=== PATIENT | female | born 1985 | race Caucasian/White ===

== ENCOUNTER 2022-12-24 18:24 | Emergency (ER) | payer OTHER, SELFPAY ==
[2022-12-24] VITALS (19 sets, daily range): BP systolic 131–160; BP diastolic 76–97; PULSE 50–80; RESP 11–24; TEMP 36.8; O2SAT 98–100; BMI 47.3
--- NOTE | 2022-12-24 18:44 | ECG_ITS ---
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
--- NOTE | 2022-12-24 18:50 | ED_ITS ---
HPI - Chest Pain General Chief Complaint: Chest Pain Stated Complaint: CHEST TIGHTNESS Time Seen by Provider: 12/24/22 18:44 Source: patient Mode of arrival: walk-in History of Present Illness HPI narrative: patient is a 37-year-old female to history of coronary artery disease and stent ?1 was placed two years ago in [place] as well as high blood pressure and high cholesterol, she presents to the Emergency Room for the evaluation of left anterior chest pain radiating into the axilla. She believes that she woke up with it this morning but states it may have been present last night and going to bed. She denies any injury or trauma. She states pain is worse with movement of her arm, deep breathing and movement of the chest wall. She has not noted any rashes or color change. She is not concerned with . She smokes 7-8 cigarettes daily. She is on Effient for anticoagulation. Risk Factors Coronary artery disease risk factors: smoking history, hyperlipidemia and h ypertension Related Data Previous Rx's Medication Instructions Recorded methocarbamol 750 mg tablet 750 mg PO TID PRN pain #20 tabs 12/24/22 methylprednisolone 4 mg tablets in See Rx Instructions .Route 12/24/22 a dose pack (Medrol (Aj)) .COMPLEX #21 ea Allergies Allergy/AdvReac Type Severity Reaction Status Date / Time No Known Drug Allergies Allergy Verified 12/24/22 18:29 Review of Systems ROS Constitutional Denies: fever or chills Ears, nose, mouth, and throat Denies: throat pain Cardiovascular Reports: chest pain; Denies: palpitations Respiratory Denies: shortness of breath or cough Gastrointestinal Denies: abdominal pain, nausea or vomiting Musculoskeletal Denies: back pain or neck pain Integumentary/Breast Denies: rash Neurological Denies: headache Hematologic/Lymphatic Reports: easy bruising PFSH PFSH Social History Smoking status: Current every day smoker Exam Narrative Exam Narrative: Gen.: Awake, alert, in no distress Head: Normocephalic, atraumatic ENT: Moist mucous membranes Respiratory: No respiratory distress, lungs clear bilaterally; tenderness in the left anterior chest wall at the axilla with no rashes or bruising noted Cardio: Regular rate and rhythm Gastrointestinal: Abdomen is soft, nondistended and nontender to palpation Extremities: Moves extremities equally, no pedal edema Psych: Normal mood and affect Neuro: No focal neuro deficit Skin: Warm, dry, intact Constitutional Vital Signs, click to edit/add: Last Vital Signs Temp 98.3 F 12/24/22 18:29 Pulse 60 12/24/22 21:00 Resp 20 12/24/22 21:00 BP 131/76 12/24/22 20:32 Pulse Ox 98 12/24/22 21:00 O2 Del Method Room Air 12/24/22 18:57 Course Vital Signs Vital signs: Vital Signs Temperature 98.3 F 12/24/22 18:29 Pulse Rate 70 12/24/22 18:29 Respiratory Rate 18 12/24/22 18:29 Blood Pressure 157/97 H 12/24/22 18:29 Pulse Oximetry 100 12/24/22 18:29 Oxygen Delivery Method Room Air 12/24/22 18:29 Temperature 98.3 F 12/24/22 18:29 Pulse Rate 60 12/24/22 21:00 Respiratory Rate 20 12/24/22 21:00 Blood Pressure 131/76 12/24/22 20:32 Pulse Oximetry 98 12/24/22 21:00 Oxygen Delivery Method Room Air 12/24/22 18:57 MDM - Chest Pain MDM Narrative Medical decision making narrative: labs including two troponins and d-dimer are within normal limits, lipase is mildly elevated but not high enough to be considered acute pancreatitis. Patient with no abdominal pain or vomiting. No evidence of transaminitis. Chest x-ray shows no evidence of acute cardiopulmonary changes. Exam is consistent with chest wall pain versus pleurisy. Patient started on a Medrol Dosepak and muscle relaxants as she is anticoagulated at home, we will avoid NSAIDs. Follow-up with PCP and return to the Emergency Room if symptoms change or worsen. Heart score is a two for the patient's risk factors of obesity, hypertension, hyperlipidemia and cigarette smoking. Medical Records Data Attestation: I reviewed the patient's medical records. Lab Data Attestation: I reviewed the patient's lab results. Labs: Lab Results 12/24/22 12/24/22 Range/Units 18:47 21:07 WBC 5.2 (4.0-11.0) 10^3/uL RBC 4.39 (4.20-5.40) 10^6/uL Hgb 13.3 (12.0-16.0) g/dL Hct 39.5 (36.0-48.0) % MCV 90.0 (81.0-99.0) fL MCH 30.3 (26.7-34.0) pg MCHC 33.7 (29.9-35.2) g/dL RDW 13.0 (11.0-15.0) % Plt Count 252 (150-450) 10^3/uL MPV 8.9 L (9.5-13.5) fL Neut % (Auto) 57.7 (43.0-75.0) % Lymph % (Auto) 33.2 (20.5-60.0) % Delta % (Auto) 6.4 (1.7-12.0) % Eos % (Auto) 2.1 (0.9-7.0) % Baso % (Auto) 0.4 (0.2-2.0) % Neut # (Auto) 3.0 (1.4-6.5) 10^3/uL Lymph # (Auto) 1.7 (1.2-3.8) 10^3/uL Delta # (Auto) 0.3 (0.3-0.8) 10^3/uL Eos # (Auto) 0.1 (0.0-0.7) 10^3/uL Baso # (Auto) 0.0 (0.0-0.1) 10^3/uL Abs Immat Gran (auto) 0.01 (0.00-0.03) 10^3/uL Imm/Tot Granulo (auto) 0.2 (0.0-0.5) % PT 10.6 (9.0-11.6) sec INR 1.00 D-Dimer 0.28 (<=0.59) mg/L FEU Sodium 140 (136-145) mmol/L Potassium 3.8 (3.5-5.1) mmol/L Chloride 105 (98-107) mmol/L Carbon Dioxide 27.7 (21.0-32.0) mmol/L Anion Gap 11.1 BUN 8.0 (7.0-18.0) mg/dL Creatinine 0.74 (0.55-1.02) mg/dL Est GFR ( Amer) >60 (>=60) Est GFR (Non-Af Amer) >60 (>=60) BUN/Creatinine Ratio 10.8 Glucose 106 (74-106) mg/dL Calcium 8.6 (8.5-10.1) mg/dL Total Bilirubin 0.4 (0.2-1.0) mg/dL AST 8 L (15-37) U/L ALT 18 (14-59) U/L Alkaline Phosphatase 87 (46-116) U/L Troponin I High Sens 6.1 7.6 (4.0-51.3) pg/mL NT-Pro-B Natriuret Pep 422.0 (<=450.0) pg/mL Total Protein 6.8 (6.4-8.2) g/dL Albumin 4.0 (3.4-5.0) g/dL Globulin 2.8 g/dL Albumin/Globulin Ratio 1.4 Lipase 656.0 H (73.0-393.0) U/L Serum HCG, Qual Negative (NEGATIVE) Imaging Data Chest x-ray: Attestation: I have reviewed the pertinent imaging results. Radiologist's impression: Procedure: XR chest 1V EXAMINATION: XR chest 1V HISTORY: Chest pain COMPARISON: None. TECHNIQUE: Portable chest FINDINGS: The lung parenchyma is free of consolidation or infiltrate. No pneumothorax or pleural effusion. The cardiac, mediastinal and hilar contours are normal. The visualized osseous structures exhibit no gross abnormality. IMPRESSION: No acute cardiopulmonary abnormality. Electronically authenticated by: NGOC LEZAMA Date: 12/24/2022 20:16 ECG Data Attestation: I personally reviewed and interpreted this ECG as follows: (normal sinus rhythm at a rate of fifty-seven, no acute ST elevation or ectopy. EKG reviewed by attending physician.) ECG interpretation date: 12/24/22 ECG interpretation time: 18:53 Heart Score History: Slightly/Non-Suspicious ECG: Normal Age: <45 years Risk Factors: >3 Risk Factors/ HX of CAD:2 Troponin: <Normal Limit Total Heart Score Recommendations & Risks:: 2 Discharge Plan Discharge Chief Complaint: Chest Pain Clinical Impression: Chest pain Patient Disposition: Home, Self-Care Time of Disposition Decision: 21:40 Condition: Good Prescriptions / Home Meds: New methocarbamol 750 mg tablet 750 mg PO TID PRN (Reason: pain) Qty: 20 0RF methylprednisolone [Medrol (Aj)] 4 mg tablets,dose pack See Rx Instructions .ROUTE .COMPLEX Qty: 21 0RF Rx Instructions: Taper as directed Instructions: Chest Pain (ED), Chest Wall Pain (ED) Stand Alone Forms: Portal Instructions Referrals: RAFY YANES [Primary Care Provider] - 1 week
[2022-12-24] MEDS: ASPIRIN 81 MG TAB.CHEW 162 MG PO (19:08)
[2022-12-24] MEDS: ORPHENADRINE 60 MG/ 2 ML VIAL IV (19:09)
[2022-12-24] MEDS: KETOROLAC TROMETHAMINE 30 MG/ML VIAL IVP (19:09)
[2022-12-24 19:11] LABS: Basophils Percent Auto 0.4 % (0.2-2.0); Eosinophils Absolute Auto 0.1 10^3/uL (0.0-0.7); Eosinophils Percent Auto 2.1 % (0.9-7.0); Hematocrit 39.5 % (36.0-48.0); Hemoglobin 13.3 g/dL (12.0-16.0); Immature Granulocytes Abs Auto 0.01 10^3/uL (0.00-0.03); Immature Granulocytes Pct Auto 0.2 % (0.0-0.5); Lymphocytes Absolute Auto 1.7 10^3/uL (1.2-3.8); Lymphocytes Percent Auto 33.2 % (20.5-60.0); Mean Corpuscular HGB Conc 33.7 g/dL (29.9-35.2); Mean Corpuscular Hemoglobin 30.3 pg (26.7-34.0); Mean Platelet Volume 8.9 fL (9.5-13.5); Monocytes Absolute Auto 0.3 10^3/uL (0.3-0.8); Monocytes Percent Auto 6.4 % (1.7-12.0); Neutrophils Percent Auto 57.7 % (43.0-75.0); Platelet Count 252 10^3/uL (150-450); Red Blood Count 4.39 10^6/uL (4.20-5.40); White Blood Count 5.2 10^3/uL (4.0-11.0)
[2022-12-24 19:23] LABS: HCG Qualitative NEGATIVE (NEGATIVE)
[2022-12-24 19:27] LABS: D Dimer 0.28 mg/L FEU (<=0.59); Prothrombin Time 10.6 sec (9.0-11.6)
--- NOTE | 2022-12-24 19:30 | XR_ITS ---
The [address] [address] Patient Name: JOVAN RITTER MRN: [id number] date: 1985 Sex: F Assigned Patient Location: ER Current Patient Location: ED.MAIN Accession/Order Number: [id number] Exam Date: 12/24/2022 19:45 Report Date: 12/24/2022 20:16 At the request of: EMMETT BRAVO Procedure: XR chest 1V EXAMINATION: XR chest 1V HISTORY: Chest pain COMPARISON: None. TECHNIQUE: Portable chest FINDINGS: The lung parenchyma is free of consolidation or infiltrate. No pneumothorax or pleural effusion. The cardiac, mediastinal and hilar contours are normal. The visualized osseous structures exhibit no gross abnormality. XR/XR chest 1V IMPRESSION: No acute cardiopulmonary abnormality. Electronically authenticated by: NGOC LEZAMA Date: 12/24/2022 20:16
[2022-12-24 19:33] LABS: Alanine Aminotransferase 18 U/L (14-59); Albumin Globulin Ratio 1.4; Alkaline Phosphatase 87 U/L (46-116); Anion Gap 11.1; Aspartate Amino Transferase 8 U/L (15-37); BUN Creatinine Ratio 10.8; Bilirubin Total 0.4 mg/dL (0.2-1.0); Calcium 8.6 mg/dL (8.5-10.1); Carbon Dioxide 27.7 mmol/L (21.0-32.0); Chloride 105 mmol/L (98-107); Estimated GFR (African America >60 (>=60); Estimated GFR (Non-African Ame >60 (>=60); Globulin 2.8 g/dL; Glucose 106 mg/dL (74-106); Potassium 3.8 mmol/L (3.5-5.1); Sodium 140 mmol/L (136-145); Total Protein 6.8 g/dL (6.4-8.2); Troponin I High Sensitivity 6.1 pg/mL (4.0-51.3)
[2022-12-24 21:29] LABS: Troponin I High Sensitivity 7.6 pg/mL (4.0-51.3)
== END 2022-12-24 21:50 | disposition home or self-care (01) ==
PROVIDERS: Physician Assistant; Emergency Provider Emergency Medicine; PCP Nurse Practitioner Family
DX: R07.9 Chest pain, unspecified (principal); I25.10 Atherosclerotic heart disease of native coronary artery without angina pectoris; Z95.5 Presence of coronary angioplasty implant and graft; I10 Essential (primary) hypertension; E78.00 Pure hypercholesterolemia, unspecified; F17.210 Nicotine dependence, cigarettes, uncomplicated; Z79.01 Long term (current) use of anticoagulants; E66.9 Obesity, unspecified; Z68.42 Body mass index [BMI] 45.0-49.9, adult
CPT/HCPCS: 36415; 71045; 80053; 83690; 83880; 84484; 84703; 85025; 85378; 85610; 93005; 96374; 96375; 99285

== ENCOUNTER 2023-02-13 07:44 | Outpatient (OUT) | payer OTHER, SELFPAY ==
[2023-02-13 08:14] LABS: Basophils Percent Auto 0.6 % (0.2-2.0); Eosinophils Absolute Auto 0.1 10^3/uL (0.0-0.7); Eosinophils Percent Auto 2.7 % (0.9-7.0); Hematocrit 38.7 % (36.0-48.0); Hemoglobin 12.6 g/dL (12.0-16.0); Immature Granulocytes Abs Auto 0.02 10^3/uL (0.00-0.03); Immature Granulocytes Pct Auto 0.4 % (0.0-0.5); Lymphocytes Absolute Auto 1.7 10^3/uL (1.2-3.8); Mean Corpuscular HGB Conc 32.6 g/dL (29.9-35.2); Mean Corpuscular Hemoglobin 30.1 pg (26.7-34.0); Mean Corpuscular Volume 92.6 fL (81.0-99.0); Mean Platelet Volume 8.8 fL (9.5-13.5); Monocytes Absolute Auto 0.3 10^3/uL (0.3-0.8); Monocytes Percent Auto 6.4 % (1.7-12.0); Neutrophils Absolute Auto 2.9 10^3/uL (1.4-6.5); Neutrophils Percent Auto 56.9 % (43.0-75.0); Platelet Count 265 10^3/uL (150-450); Red Blood Count 4.18 10^6/uL (4.20-5.40); White Blood Count 5.2 10^3/uL (4.0-11.0)
[2023-02-13 14:19] LABS: Estimated Average Glucose 94 mg/dL; Glycohemoglobin A1C 4.9 % (4.5-6.2)
[2023-02-13 15:24] LABS: Alanine Aminotransferase 18 U/L (14-59); Albumin Globulin Ratio 1.2; Albumin Level 3.6 g/dL (3.4-5.0); Alkaline Phosphatase 82 U/L (46-116); Anion Gap 12.9; Aspartate Amino Transferase 6 U/L (15-37); BUN Creatinine Ratio 11.1; Bilirubin Total 0.5 mg/dL (0.2-1.0); Calcium 8.3 mg/dL (8.5-10.1); Carbon Dioxide 26.3 mmol/L (21.0-32.0); Chloride 106 mmol/L (98-107); Chol HDL Ratio 3.7; Cholesterol 122 mg/dL (<=200); Estimated GFR (African America >60 (>=60); Estimated GFR (Non-African Ame >60 (>=60); Globulin 3.1 g/dL; Glucose 83 mg/dL (74-106); HDL Cholesterol 33 mg/dL (40-60); Potassium 4.2 mmol/L (3.5-5.1); Sodium 141 mmol/L (136-145); Thyroid Stimulating Hormone 3.636 uIU/mL (0.358-3.740); Total Protein 6.7 g/dL (6.4-8.2); Triglycerides 80 mg/dL (<=150)
[2023-02-14 10:09] LABS: Insulin 4.5 uIU/mL (2.6-24.9)
== END 2023-02-13 07:45 | disposition home or self-care (01) ==
LOC: LAB 07:47
PROVIDERS: PCP Nurse Practitioner Family; Visit Provider Nurse Practitioner Family
DX: E66.01 Morbid (severe) obesity due to excess calories (principal)
CPT/HCPCS: 36415; 80053; 80061; 82306; 83036; 83525; 83540; 84436; 84443; 84481; 85025

== ENCOUNTER 2024-02-21 17:56 | Emergency (ER) | payer OTHER, SELFPAY ==
[2024-02-21 18:00] VITALS: BP 160/110; PULSE 71; TEMP 37.1; O2SAT 96; BMI 42.9
--- NOTE | 2024-02-21 18:09 | ED.DENTAL1 ---
HPI - Dental/Oral General Chief complaint: Dental/Oral Stated complaint: toothache Time Seen by Provider: 02/21/24 18:03 Source: patient Mode of arrival: walk-in Limitations: no limitations History of Present Illness HPI Narrative: 38-year-old female presents to the emergency department for toothache. She is complaining of pain to the right lower dentition. She understand she has a bad tooth. The pain started earlier today and it has been throbbing and severe. She has a history of hypertension and took her blood pressure medicine right before she came in here. No difficulty breathing or swallowing and she has not had a fever. Related Data Home Medications ?Medication ?Instructions ?Recorded ?Confirmed aspirin 81 mg tablet,delayed 81 mg PO QDAY 02/21/24 02/21/24 release atorvastatin 80 mg tablet 80 mg PO .qhs 02/21/24 02/21/24 carvedilol 6.25 mg tablet 6.25 mg PO Q12H 02/21/24 02/21/24 prasugrel 10 mg tablet 10 mg PO QDAY 02/21/24 02/21/24 sacubitril 49 mg-valsartan 51 mg 1 tab PO BID 02/21/24 02/21/24 tablet (Entresto) spironolactone 25 mg tablet 25 mg PO QDAY 02/21/24 02/21/24 Previous Rx's ?Medication ?Instructions ?Recorded hydrocodone 5 mg-acetaminophen 325 1 tab PO Q6H PRN pain 5 days #20 02/21/24 mg tablet tabs penicillin V potassium 250 mg 250 mg PO QID 10 days #40 tabs 02/21/24 tablet Allergies Allergy/AdvReac Type Severity Reaction Status Date / Time No Known Drug Allergies Allergy Verified 02/21/24 18:00 Review of Systems ROS Narrative A ten point review of systems is negative except as noted above. [facility] Medical History (Updated 02/21/24 @ 18:37 by Rosalio Maurer MD) HTN (hypertension) ?I10 - Essential (primary) hypertension (ICD-10) Heart attack ?I21.9 - Acute myocardial infarction, unspecified (ICD-10) Surgical History (Updated 02/21/24 @ 18:12 by Amie Giordano) Stented coronary artery ?Z95.5 - Presence of coronary angioplasty implant and graft (ICD-10) Social History Smoking status: Current every day smoker Little interest or pleasure in doing things: not at all Feeling down, depressed, or hopeless: not at all Exam Narrative Exam Narrative: Nurses note and vital signs reviewed and patient is not hypoxic. General: The patient appears in no apparent distress. Skin: Warm, dry, no pallor noted. There is no rash noted. Head: Normocephalic, atraumatic Eye: Normal conjunctiva, no drainage Ears, Nose, Mouth, and Throat: oral mucosa is moist. Nares patent. No facial swelling or erythema. No swelling to the floor of her mouth. Dentition is examined and she has obvious dental caries in the right lower dentition. [place] teeth have already been removed. No bleeding or pus present. Cardiovascular: Regular Rate and Rhythm Respiratory: Patient is in no distress, no accessory muscle use, lungs are clear to auscultation, no wheezing, rales or rhonchi Back: non-tender GI: Soft and nontender Musculoskeletal: No joint swelling Neurological: A&O, normal speech Psychiatric: Cooperative Constitutional Vital Signs, click to edit/add: Last Vital Signs Temp 98.7 F 02/21/24 18:00 Pulse 71 02/21/24 18:00 Resp 14 02/21/24 18:00 BP 150/98 H 02/21/24 18:38 Pulse Ox 96 02/21/24 18:00 O2 Del Method Room Air 02/21/24 18:00 Course Vital Signs Vital signs: Vital Signs Temperature 98.7 F 02/21/24 18:00 Pulse Rate 71 02/21/24 18:00 Respiratory Rate 14 02/21/24 18:00 Blood Pressure 160/110 H 02/21/24 18:00 Pulse Oximetry 96 02/21/24 18:00 Oxygen Delivery Method Room Air 02/21/24 18:00 Temperature 98.7 F 02/21/24 18:00 Pulse Rate 71 02/21/24 18:00 Respiratory Rate 14 02/21/24 18:00 Blood Pressure 150/98 H 02/21/24 18:38 Pulse Oximetry 96 02/21/24 18:00 Oxygen Delivery Method Room Air 02/21/24 18:00 MDM - Dental/Oral MDM Narrative Medical decision making narrative: Blood pressure was elevated upon arrival but has come down. She had taken her blood pressure medicine just before coming in. She was given [place] and penicillin here and prescribed the same and she will follow-up with dentistry, list provided. Treatment diagnosis and follow-up were discussed with the patient. Differential Diagnosis Differential diagnosis: Likely gingival abscess, dental caries, toothache and dental abscess Discharge Plan Discharge Chief Complaint: Dental/Oral Clinical Impression: Toothache, Dental caries Patient Disposition: Home, Self-Care Time of Disposition Decision: 18:37 Condition: Good Mode of Transportation: Private Vehicle Prescriptions / Home Meds: New hydrocodone-acetaminophen 5-325 mg tablet 1 tab PO Q6H PRN (Reason: pain) 5 Days Qty: 20 0RF penicillin V potassium 250 mg tablet 250 mg PO QID 10 Days Qty: 40 0RF No Action prasugrel 10 mg tablet 10 mg PO QDAY aspirin 81 mg tablet,delayed release (DR/EC) 81 mg PO QDAY atorvastatin 80 mg tablet 80 mg PO .qhs carvedilol 6.25 mg tablet 6.25 mg PO Q12H Entresto 49-51 mg tablet 1 tab PO BID spironolactone 25 mg tablet 25 mg PO QDAY Print Language: [place]ian Instructions: Toothache (ED) Additional Instructions: Follow-up with dentistry Referrals: RAFY YANES [Primary Care Provider] - 1 week
[2024-02-21] MEDS: HYDROCODONE/ACET 5-325 MG TABLET 1 TAB PO (18:19)
[2024-02-21] MEDS: PENICILLIN V POTASSIUM 250 MG TABLET 500 MG PO (18:20)
[2024-02-21 18:38] VITALS: BP 150/98
[2024-02-21 18:43] VITALS: BP 150/98; PULSE 79; O2SAT 99
== END 2024-02-21 18:43 | disposition home or self-care (01) ==
PROVIDERS: Emergency Provider Emergency Medicine; PCP Nurse Practitioner Family
DX: K02.9 Dental caries, unspecified (principal); K08.89 Other specified disorders of teeth and supporting structures; F17.200 Nicotine dependence, unspecified, uncomplicated
CPT/HCPCS: 99283

== ENCOUNTER 2024-06-12 07:36 | Outpatient (OUT) | payer OTHER, SELFPAY ==
--- OUTSIDE RECORDS SUMMARY | 2024-06-12 07:38 | XMS_ITS | CCD ---
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 Name Role Phone RAFY YANES Primary Care Unavailable DR ANITA DESAI Admitting Unavailable LLOYD, DR HOWARD Attending Unavailable VICKI GRANT Consulting Unavailable RAFY YANES Admitting Unavailable RAFY YANES Attending Unavailable RAFY YANES Primary Care Unavailable RAFY YANES Consulting Unavailable KEEGAN LANDEROS Admitting Unavailable KEEGAN LANDEROS Attending Unavailable RAFY YANES Primary Care Unavailable KEEGAN LANDEROS Consulting Unavailable BILLY MEANS Attending Unavailable BHAKTI GALVEZ Referring Unavailable Ronnie Gregorio Primary Care Physician [phone] Billy Means Referring Unavailable Billy Means Attending Unavailable Billy Means Admitting Unavailable LILLIAN REEVES Attending Unavailable Medications Current Medications Medication Drug Class(es) Dates Sig (Normalized) Sig (Original) benazepril / hydroCHLOROthiazide (1 source) Thiazide Diuretic, Angiotensin Converting Enzyme Inhibitor Start: 01-11-2010 take 1 tablet by mouth once daily benazepril-hydr ochlorothiazide 20 mg-12.5 mg oral tablet 1 tab(s), Oral, Daily, Refill(s) 0 Start Date: 01/11/10 Status: Ordered Depo-Provera (1 source) Progestin Start: 08-19-2011 inject 400 mg by intramuscular injection every three months Depo-Provera 400 mg, IntraMuscular, q3mo Start Date: 08/19/11 Status: Ordered 24 hr metoprolol succinate 50 mg extended release oral tablet (1 source) beta-Adrenergic Nestor Start: 01-11-2010 metoprolol 50 mg ER Tab Oral, BID, Refills(s) 0 Start Date: 01/11/10 Status: Ordered Completed/Discontinued Medications Medication Drug Class(es) Dates Sig (Normalized) Sig (Original) cyclobenzaprine hydrochloride 10 mg oral tablet (1 source) Muscle Relaxant Start: 04-07-2013 take 1 tablet by mouth three times daily Flexeril 10 mg Tab 10 mg = 1 tab(s), Oral, TID, Take one by mouth three times a day, # 21 tab(s), Refills(s) 0 Start Date: 04/07/13 Status: Ordered traMADol hydrochloride 50 mg oral tablet (1 source) Opioid Agonist Start: 04-07-2013 take 1 tablet by mouth every four hours Ultram 50 mg Tab 50 mg, Oral, q4hr, Take one by mouth every four hours, # 30 tab(s), Refills(s) 0 Start Date: 04/07/13 Status: Ordered Problems Active Problems Problem Classification Problem Date Documented Date Episodic/Chronic Acute myocardial infarction ([address]) ST elevation (STEMI) myocardial infarction involving left anterior descending coronary artery; Translations: [ST elevation (STEMI) myocardial infarction involving left anterior descending coronary artery] Onset: 03-12-2022 Chronic Congestive heart failure; nonhypertensive (6 sources) Chronic systolic (congestive) heart failure; Translations: [CHRONIC SYSTOLIC HEART FAILURE] Onset: 02-21-2022 Chronic Coronary atherosclerosis and other heart disease (4 sources) Atherosclerotic heart disease of [place] coronary artery without angina pectoris; Translations: [Ischemic cardiomyopathy] Onset: 03-12-2022 Chronic Coronary atherosclerosis and other heart disease (2 sources) Presence of coronary angioplasty implant and graft; Translations: [Presence of coronary angioplasty implant and graft] Onset: 03-12-2022 Episodic Diabetes mellitus without complication (1 source) Other abnormal glucose; Translations: [OTHER ABNORMAL GLUCOSE] Onset: 03-09-2022 Episodic Disorders of lipid metabolism (2 sources) Pure hypercholesterolemia, unspecified; Translations: [Pure hypercholesterolemia, unspecified] Onset: 06-01-2024 Chronic Disorders of teeth and jaw (5 sources) Other specified disorders of teeth and supporting structures; Translations: [Periapical abscess without sinus] Onset: 02-27-2022 Episodic Essential hypertension (8 sources) Essential (primary) hypertension; Translations: [Hypertensive disorder] Onset: 02-28-2022 Chronic Osteoarthritis (2 sources) Unspecified osteoarthritis, unspecified site; Translations: [Arthritis] Onset: 02-28-2022 04-07-2013 Chronic Other aftercare (1 source) Other correction (current) drug therapy; Translations: [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 DRUG THERAPY] Onset: 02-28-2022 Episodic Other nutritional; endocrine; and metabolic disorders (2 sources) Morbid (severe) obesity due to excess calories; Translations: [Morbid (severe) obesity due to excess calories] Onset: 06-01-2024 Chronic Pancreatic disorders (not diabetes) (1 source) Pancreatitis 04-07-2013 Episodic Residual codes; unclassified (1 source) Acquired absence of other specified parts of digestive tract; Translations: [ACQ ABSENCE OTH PART DIGESTV TRACT] Onset: 02-28-2022 Episodic Residual codes; unclassified (2 sources) Tobacco use; Translations: [Tobacco use] Onset: 06-01-2024 Episodic Substance-related disorders (1 source) Nicotine dependence, cigarettes, uncomplicated; Translations: [NICOTINE DEPEND CIGARETTES UNCOMP] Onset: 02-28-2022 Chronic Unclassified (1 source) Optic Nerve Swelling 08-19-2011 Past or Other Problems Problem Classification Problem Date Documented Da te Episodic/Chronic Other non-traumatic joint disorders (1 source) Knee pain Onset: 08-19-2011 07-31-2013 Episodic Results Test Name Value Interpretation Reference Range Facility Office Visiton 06-01-2024 Follow-up visit [id number] Jovan Horton 1985 F Date Provider Department Center 06/01/2024 [id number]-IXACULLILLIAN VALLECILLO ELVIN Conrad Family History Problem Relation Age of Onset Coronary artery disease Mother Cancer Mother Other Mother Other Father Coronary artery disease Father COPD Father Other Maternal Grandmother Family Status - Relation Status Age at Mother Father Maternal Grandmother Alive Level of Service:53952 [place] OFFICE/OUTPATIENT ESTABLISHED MOD MDM 30 MIN Reason for Visit and Comments: Coronary Artery Disease [187] Congestive Heart Failure [127] Hyperlipidemia [182] Hypertension [078420] - Taking torsemide PRN. Weight Loss [406544] - Has lost 35# since last visit in Jan 2023. Dizziness [024037] Normal [facility] Orders Onlyon 06-01-2024 Orders Only [id number] Jovan Horton 1985 F Date Provider Department Center 06/01/2024 ANDREW LANCASTER ELVIN Conrad Family History Problem Relation Age of Onset Coronary artery disease Mother Cancer Mother Other Mother Other Father Coronary artery disease Father COPD Father Other Maternal Grandmother Family Status - Relation Status Age at Mother Father Maternal Grandmother Alive Normal [facility] Consent for Treatmenton 07-18 Consent for Treatment [id number]#1.00TIFF Normal [facility] MRA Venogram Headon 08-01-19 MRA Venogram Head Exam Date/Time: 08/01/2023 08:55 EDT Reason for Exam: [id number] Report IMPRESSION: Negative study EXAMINATION: MRA Venogram Head CLINICAL HISTORY: COMPARISONS: None available. TECHNIQUE: Noncontrast multiplanar, 3-D MRV imaging of the brain was obtained. FINDINGS: There is normal flow without evidence of opacification or thrombus in the superior sagittal sinus, straight sinus, the transverse sinuses and sigmoid sinuses. Ordering Provider: Billy Means FINAL REPORT Dictated: 08/01/2023 9:40 am Abdiel Hill MD, V. Signed (Electronic Signature): 08/01/2023 9:40 am Signed by: Abdiel Hill MD, V. Transcribed by: JESUS Technologist: LUZ MARINA Normal [facility] MRI Brain w/ + w/o Contrasto n 08-01-2023 MRI Brain w/ + w/o Contrast Exam Date/Time: 08/01/2023 08:55 EDT Reason for Exam: [id number] Report IMPRESSION: There are no acute intracranial changes, no evidence of ischemia or hemorrhage. There are no regions of signal abnormality or abnormal enhancement. EXAMINATION: MRI Brain w/ + w/o Contrast CLINICAL HISTORY: H4. COMPARISONS: None TECHNIQUE: Multiplanar multisequence images of the brain were obtained without contrast. Diffusion perfusion imaging was obtained. BRAIN MRI FINDINGS: There are no extra-axial collections. There is no evidence of hemorrhage. There are no areas of perfusion diffusion signal abnormality to suggest ischemia. The susceptibility images do not demonstrate evidence of hemosiderin deposition within the brain parenchyma or the leptomeninges. There is preservation of the ortega-white matter differentiation. There are no areas of signal abnormality within the brain parenchyma or the posterior fossa to suggest lesion. There are no areas of abnormal enhancement after IV contrast administration. The sulci and ventricles are within normal limits without evidence of hydrocephalus. There are cerebral aqueduct is patent. The prepontine cisterns and the fourth ventricle are within normal limits. The midline structures are intact, the corpus callosum is within normal limits. The region of the pineal gland and the sella turcica are unremarkable. There are no space-occupying lesions in the posterior fossa. The craniocervical junction is unremarkable. The visualized portions of the orbits are within normal limits, the globes are intact, the optic nerves are symmetric. The visualized portions of the paranasal sinuses are within normal limits. The calvarium and soft tissues are unremarkable. Report Ordering Provider: Billy Means FINAL REPORT Dictated: 08/01/2023 9:37 am Abdiel Hill MD, V. Signed (Electronic Signature): 08/01/2023 9:37 am Signed by: Abdiel Hill MD, V. Transcribed by: JESUS Technologist: LUZ MARINA Technical Comments [employer] Contrast amount in ml's: 10 Normal [facility] RAD - MRI Screening Formon 0 08-01-2023 RAD - MRI Screening Form [id number] 523#1.00TIFF Normal [facility] Physician Orderon 07-19-2023 Physician Order [id number] DC#1.00TIFF Normal [facility] INSULINon 03-07-2022 Insulin 8.8 uIU/mL Normal 2.6-24.9 [facility] Comment on above: Performed By: #### I NSULIN #### [facility] [address] [address] [address] Souleymane Greer FREE THYROXINE INDEX T7on FTI 3.26 Normal 1.30-4.50 [facility] Comment on above: Performed By: #### T 7, LIPID #### [facility] [address] [address] [address] Souleymane Greer T3U 35.0 % Normal 30.0-39.0 [facility] Comment on above: Performed By: #### T 7, LIPID #### [facility] [address] [address] [address] Souleymane Greer T4 [Mass/Vol] 9.30 ug/dL Normal 4.80-13.90 [facility] Comment on above: Performed By: #### T 7, LIPID #### [facility] [address] [place] [address] Dr. Souleymane Greer GLYCOHEMOGLOBIN A1Con 2021 ADA RECOMMENDATION SEE BELOW Normal [facility] Comment on above: Result Comment: ADA RECOMMENDED LIMIT 4.0 - 6.0 ADA THERAPEUTIC TARGET < 7.0 ACTION SUGGESTED > 7.0 Performed By: #### A 1C #### [facility] [address] [place] [address] Dr. Souleymane Greer Glucose [Mass/Vol] 97 mg/dL Normal [facility] Comment on above: Performed By: #### A 1C #### [facility] [address] [place] [address] Dr. Souleymane Greer HbA1c (Bld) [Mass fraction] 5.0 % Normal 4.5-6.2 [facility] Comment on above: Performed By: #### A 1C #### [facility] [address] [place] [address] Dr. Souleymane Greer LIPID PROFILEon 03-06-2022 CHOL-HDL RATIO NORM SEE BELOW Normal [facility] Comment on above: Result Comment: 3.3 - 4.4 LOW RISK 4.4 - 7.1 AVERAGE RISK 7.1 - 11.0 MODERATE RISK >11.0 HIGH RISK Performed By: #### T 7, LIPID #### [facility] [address] [place] [address] Dr. Souleymane Greer Cholesterol [Mass/Vol] 102 mg/dL Normal <=200 [facility] Comment on above: Performed By: #### T 7, LIPID #### [facility] [address] [address] [address] Souleymane Greer Cholesterol in HDL [Mass/Vol] 27 mg/dL Critically low 40-60 [facility] Comment on above: Performed By: #### T 7, LIPID #### [facility] [address] [address] [address] Souleymane Greer Cholesterol in LDL [Mass/Vol] 59.4 mg/dL Normal [facility] Comment on above: Performed By: #### T 7, LIPID #### [facility] [address] [address] [address] Souleymane Greer Cholesterol.total/Cho lesterol in HDL [Mass ratio] 3.8 {ratio} Normal [facility] Comment on above: Performed By: #### T 7, LIPID #### [facility] [address] [address] [address] Souleymane Greer HDL NORMAL > or = 60 mg/dl - LOW CARDIOVASCULAR RISK <40 mg/dl - HIGH CARDIOVASCULAR RISK Normal [facility] Comment on above: Performed By: #### T 7, LIPID #### [facility] [address] [place] [address] Dr. Souleymane Greer LDL CALC NORMAL SEE BELOW Normal [facility] Comment on above: Result Comment: <100 mg/dl OPTIMAL 100 - 129 mg/dl NEAR OR ABOVE OPTIMAL 130 - 159 mg/dl BORDERLINE HIGH 160 - 189 mg/dl HIGH >190 mg/dl VERY HIGH Performed By: #### T 7, LIPID #### [facility] [address] [place] [address] Dr. Souleymane Greer Triglyceride [Mass/Vol] 78 mg/dL Normal <=150 [facility] Comment on above: Performed By: #### T 7, LIPID #### [facility] [address] [address] [address] Souleymane Greer VLDL CALC 15.6 mg/dL Normal [facility] Comment on above: Performed By: #### T 7, LIPID #### [facility] [address] [address] [address] Souleymane Greer TSHon 03-06-2022 TSH 1.266 uIU/mL Normal 0.358-3.740 [facility] Comment on above: Performed By: #### T SH #### [facility] [address] [place] [address] Dr. Souleymane Greer BNPon 02-21-2022 Natriuretic peptide B (Bld) [Mass/Vol] 696.0 pg/mL Critically high <=450.0 [facility] Comment on above: Performed By: #### C MP, BNP #### [facility] [address] [place] [address] Dr. Souleymane Greer CBC AUTO DIFFon 02-21-2022 BASO # 0.0 103/ul Normal 0.0-0.1 [facility] Comment on above: Performed By: #### C BC #### [facility] [address] [place] [address] Dr. Souleymane Greer Basophils/100 WBC (Bld) 0.4 % Normal 0.2-2.0 [facility] Comment on above: Performed By: #### C BC #### [facility] [address] [place] [address] Dr. Souleymane Greer EO # 0.1 103/ul Normal 0.0-0.7 [facility] Comment on above: Performed By: #### C BC #### [facility] [address] [place] [address] Dr. Souleymane Greer Eosinophils/100 WBC (Bld) 2.2 % Normal 0.9-7.0 [facility] Comment on above: Performed By: #### C BC #### [facility] [address] [place] [address] Dr. Souleymane Greer Erythrocyte distribution width (RBC) [Ratio] 12.6 % Normal 11.0-15.0 [facility] Comment on above: Performed By: #### C BC #### [facility] [address] [place] [address] Dr. Souleymane Greer Hematocrit (Bld) [Volume fraction] 39.3 % Normal 36.0-48.0 [facility] Comment on above: Performed By: #### C BC #### [facility] [address] [place] [address] Dr. Souleymane Greer Hemoglobin (Bld) [Mass/Vol] 12.7 g/dL Normal 12.0-16.0 [facility] Comment on above: Performed By: #### C BC #### [facility] [address] [place] [address] Dr. Souleymane Greer IG # 0.01 10e3/ul Normal 0.00-0.03 [facility] Comment on above: Performed By: #### C BC #### [facility] [address] [place] [address] Dr. Souleymane Greer IG % 0.2 % Normal 0.0-0.5 [facility] Comment on above: Performed By: #### C BC #### [facility] [address] [place] [address] Dr. Souleymane Greer LYMPH # 1.5 103/ul Normal 1.2-3.8 [facility] Comment on above: Performed By: #### C BC #### [facility] [address] [place] [address] Dr. Souleymane Greer Lymphocytes/100 WBC (Bld) 27.0 % Normal 20.5-60.0 [facility] Comment on above: Performed By: #### C BC #### [facility] [address] [place] [address] Dr. Souleymane Greer MANUAL DIFF REQ NO Normal [facility] Comment on above: Performed By: #### C BC #### [facility] [address] [place] [address] Dr. Souleymane Greer MCH (RBC) [Entitic mass] 29.5 pg Normal 26.7-34.0 [facility] Comment on above: Performed By: #### C BC #### [facility] [address] [place] [address] Dr. Souleymane Greer MCHC (RBC) [Mass/Vol] 32.3 g/dL Normal 29.9-35.2 [facility] Comment on above: Performed By: #### C BC #### [facility] [address] [place] [address] Dr. Souleymane Greer MCV (RBC) [Entitic vol] 91.4 fL Normal 81.0-99.0 [facility] Comment on above: Performed By: #### C BC #### [facility] [address] [place] [address] Dr. Souleymane Greer MONO # 0.3 103/ul Normal 0.3-0.8 [facility] Comment on above: Performed By: #### C BC #### [facility] [address] [place] [address] Dr. Souleymane Greer Monocytes/100 WBC (Bld) 6.0 % Normal 1.7-12.0 [facility] Comment on above: Performed By: #### C BC #### [facility] [address] [place] [address] Dr. Souleymane Greer NEUT # 3.5 103/ul Normal 1.4-6.5 [facility] Comment on above: Performed By: #### C BC #### [facility] [address] [place] [address] Dr. Souleymane Greer Neutrophils/100 WBC (Bld) 64.2 % Normal 43.0-75.0 [facility] Comment on above: Performed By: #### C BC #### [facility] [address] [place] [address] Dr. Souleymane Greer Platelet mean volume (Bld) [Entitic vol] 8.8 fL Critically low 9.5-13.5 [facility] Comment on above: Performed By: #### C BC #### [facility] [address] [place] [address] Dr. Souleymane Greer PLT 276 103/ul Normal 150-450 [facility] Comment on above: Performed By: #### C BC #### [facility] [address] [place] [address] Dr. Souleymane Greer RBC 4.30 106/ul Normal 4.20-5.40 [facility] Comment on above: Performed By: #### C BC #### [facility] [address] [place] [address] Dr. Souleymane Greer WBC 5.5 103/ul Normal 4.0-11.0 [facility] Comment on above: Performed By: #### C BC #### [facility] [address] [place] [address] Dr. Souleymane Greer PROF 14(COMP METB)on 022 Albumin [Mass/Vol] 3.9 g/dL Normal 3.4-5.0 [facility] Comment on above: Performed By: #### C MP, BNP #### [facility] [address] [place] [address] Dr. Souleymane Greer Albumin/Globulin [Mass ratio] 1.3 {ratio} Normal [facility] Comment on above: Performed By: #### C MP, BNP #### [facility] [address] [address] [address] Souleymane Greer ALP [Catalytic activity/Vol] 93 U/L Normal 46-116 [facility] Comment on above: Performed By: #### C MP, BNP #### [facility] [address] [place] [address] Dr. Souleymane Greer ALT [Catalytic activity/Vol] 17 U/L Normal 14-59 [facility] Comment on above: Performed By: #### C MP, BNP #### [facility] [address] [place] [address] Dr. Souleymane Greer Anion gap [Moles/Vol] 9.8 mmol/L Normal [facility] Comment on above: Performed By: #### C MP, BNP #### [facility] [address] [place] [address] Dr. Souleymane Greer AST [Catalytic activity/Vol] 8 U/L Critically low 15-37 [facility] Comment on above: Performed By: #### C MP, BNP #### [facility] [address] [place] [address] Dr. Souleymane Greer Bilirubin [Mass/Vol] 0.4 mg/dL Normal 0.2-1.0 [facility] Comment on above: Performed By: #### C MP, BNP #### [facility] [address] [place] [address] Dr. Souleymane Greer Calcium [Mass/Vol] 8.9 mg/dL Normal 8.5-10.1 [facility] Comment on above: Performed By: #### C MP, BNP #### [facility] [address] [place] [address] Dr. Souleymane Greer Chloride [Moles/Vol] 105 mmol/L Normal 98-107 [facility] Comment on above: Performed By: #### C MP, BNP #### [facility] [address] [place] [address] Dr. Souleymane Greer CO2 [Moles/Vol] 28.6 mmol/L Normal 21.0-32.0 [facility] Comment on above: Performed By: #### C MP, BNP #### [facility] [address] [address] [address] Souleymane Greer Creatinine [Mass/Vol] 0.79 mg/dL Normal 0.55-1.02 [facility] Comment on above: Performed By: #### C MP, BNP #### [facility] [address] [place] [address] Dr. Souleymane Greer EGFR-AF BRITISH >60 Normal >=60 [facility] Comment on above: Performed By: #### C MP, BNP #### [facility] [address] [address] [address] Souleymane Greer EGFR-NON AF BRITISH >60 Normal >=60 [facility] Comment on above: Performed By: #### C MP, BNP #### [facility] [address] [place] [address] Dr. Souleymane Greer Globulin (S) [Mass/Vol] 2.9 g/dL Normal [facility] Comment on above: Performed By: #### C MP, BNP #### [facility] [address] [place] [address] Dr. Souleymane Greer Glucose [Mass/Vol] 95 mg/dL Normal 74-106 [facility] Comment on above: Performed By: #### C MP, BNP #### [facility] [address] [address] [address] Souleymane Greer Potassium [Moles/Vol] 4.4 mmol/L Normal 3.5-5.1 [facility] Comment on above: Performed By: #### C MP, BNP #### [facility] [address] [address] [address] Souleymane Greer Protein [Mass/Vol] 6.8 g/dL Normal 6.4-8.2 [facility] Comment on above: Performed By: #### C MP, BNP #### [facility] [address] [address] [address] Souleymane Greer Sodium [Moles/Vol] 139 mmol/L Normal 136-145 [facility] Comment on above: Performed By: #### C MP, BNP #### [facility] [address] [address] [address] Souleymane Greer Urea nitrogen [Mass/Vol] 9.0 mg/dL Normal 7.0-18.0 [facility] Comment on above: Performed By: #### C MP, BNP #### [facility] [address] [place] [address] Dr. Souleymane Greer Urea nitrogen/Creatinine [Mass ratio] 11.4 mg/mg Normal [facility] Comment on above: Performed By: #### C MP, BNP #### [facility] [address] [place] [address] Dr. Souleymane Greer Encounters Encounter Date Encounter Type Care Provider Facility Start: 06-01-2024 End: 06-01-2024 ambulatory [facility] Start: 08-01-2023 End: 08-02-2023 ambulatory Billy Means Facility:[facility] Start: 08-01-2023 End: 08-01-2023 Patient encounter procedure Billy Means [facility] Start: 07-19-2023 End: 07-19-2023 ambulatory BILLY MEANS Not Available Start: 03-06-2022 End: 03-07-2022 ambulatory RAFY YANES Facility:[facility] Start: 02-27-2022 End: 02-27-2022 ambulatory RAFY YANES Facility:[facility] Start: 02-21-2022 End: 02-22-2022 ambulatory KEEGAN LANDEROS Facility: Procedures Date Procedure Procedure Detail Performing Clinician section Billy freeman Cholecystectomy Billy saldivar Tonsillectomy Billy suarez Payers Date Payer Category Payer Unknown [id number] 2.16.84 [id number] 1985 Unknown [id number] 2.16.84 [id number] 1984 Unknown [id number] 2.16.84 [id number] 1984 Unknown [id number] 2.16.84 [id number] 1984 Unknown [id number] 2.16.8 [id number] 1960 Medicaid [id number] Social History Date Type Detail Facility Tobacco Current, Cigarettes [facility] Comment on above: 10 cigarettes/day Tobacco smoking status No Smokin g Status Entered [facility] Sex Assigned At Female [facility] Progress note 06-01-2024 Note Date & Type Note Facility 06-01-2024 Note b [facility] Progress note 06-01-2024 Note Date & Type Note Facility 06-01-2024 Note [facility] Subjective Jovan Horton is a 39 y.o. year old female patient being seen for Coronary Artery Disease, Congestive Heart Failure, Hyperlipidemia, Hypertension (Taking torsemide PRN.), Weight Loss (Has lost 35# since last visit in Jan 2023. ), and Dizziness Patient Active Problem List Diagnosis Tobacco abuse, in remission Acute ST elevation myocardial infarction (STEMI) of lateral wall (CMS/HCC) CAD, multiple vessel Chronic systolic heart failure (CMS/HCC) Cystic fibrosis carrier Essential hypernatremia History of section History of MA (myocardial infarction) Hypertensive urgency Ischemic cardiomyopathy Multigravida of advanced maternal age in first trimester On statin therapy S/P drug eluting coronary stent placement ST elevation myocardial infarction (STEMI) (CMS/HCC) Anxiety Candidiasis of skin General counseling and advice for contraceptive management Essential hypertension High risk sexual behavior Morbid obesity (CMS/HCC) Optic neuritis Papilledema associated with increased intracranial pressure Solitary cyst of breast Tobacco use Vaginal high risk human papillomavirus (HPV) DNA test positive HPI Patient has a history of coronary artery disease, STEMI, PCI of diagonal branch, HFrEF with ejection fraction 20 to 25% improved to 45%, hypertension, and hyperlipidemia. The patient is here today for follow-up visit. She states that she is doing well. She is physically active. She denies chest pain or shortness of breath at rest or exertion. She denies orthopnea or paroxysmal nocturnal dyspnea or dizziness or palpitations or legs edema or legs discomfort on exertion She continues to smoke half pack per day. ROS All systems were reviewed and they were negative except for the positive findings noted above in the history Past Medical History: Diagnosis Date CHF (congestive heart failure) (CMS/HCC) Coronary artery disease s/p PCI to diag Hyperlipidemia Hypertension Past Surgical History: Procedure Laterality Date CARDIAC CATHETERIZATION 02/14/2021 PCI SECTION, CLASSIC CHOLECYSTECTOMY CORONARY STENT PLACEMENT 02/14/2021 diagonal branch TONSILLECTOMY Family History Problem Relation Name Age of Onset Coronary artery disease Mother Cancer Mother Other (open heart surgery) Mother Other (open heart surgery) Father Coronary artery disease Father COPD Father Other (pacemaker) Maternal Grandmother Social History Tobacco Use Smoking status: Every Day Current packs/day: 0.50 Types: Cigarettes Smokeless tobacco: Never Substance Use Topics Alcohol use: Not Currently Allergies No Known Allergies Medications Current Outpatient Medications: aspirin 81 mg EC tablet, TAKE 1 TABLET BY MOUTH EVERY DAY IN THE MORNING, Disp: 90 tablet, Rfl: 3 atorvastatin (Lipitor) 80 mg tablet, TAKE 1 TABLET BY MOUTH AT BEDTIME, Disp: 90 tablet, Rfl: 3 carvedilol (Coreg) 6.25 mg tablet, TAKE 1 TABLET (6.25 MG) BY MOUTH WITH BREAKFAST AND WITH EVENING MEAL., Disp: 180 tablet, Rfl: 3 nitroglycerin (Nitrostat) 0.4 mg SL tablet, Place 1 tablet (0.4 mg) under the tongue every 5 (five) minutes if needed for chest pain., Disp: 25 tablet, Rfl: 3 prasugrel (Effient) 10 mg tablet, TAKE 1 TABLET BY MOUTH EVERY DAY IN THE MORNING, Disp: 90 tablet, Rfl: 3 sacubitril-valsartan (Entresto) 49-51 mg tablet, Take 1 tablet by mouth two times daily. Need apt for further refills, Disp: 180 tablet, Rfl: 0 spironolactone (Aldactone) 25 mg tablet, Take 1 tablet (25 mg) by mouth two times daily. Need apt for further refills. (Patient taking differently: Take 25 mg by mouth in the morning.), Disp: 180 tablet, Rfl: 0 torsemide (Demadex) 20 mg tablet, Take 1 tablet (20 mg) by mouth if needed (Weight gain, LE swelling)., Disp: 90 tablet, Rfl: 3 buPROPion XL (Wellbutrin XL) 150 mg 24 hr tablet, Take 1 tablet (150 mg) by mouth in the morning. Do not crush, chew, or split., Disp: 14 tablet, Rfl: 0 Objective Visit Vitals Pulse 70 Ht 1.676 m (5' 6 ) Wt 117 kg (257 lb) SpO2 98% BMI 41.48 kg/m??? OB Status Having periods Smoking Status Every Day BSA 2.33 m??? Physical exam: GENERAL: alert and oriented x3, well developed, in no acute distress. HEAD: atraumatic, normocephalic. EYES: ROSA, EOMI. NECK: trachea midline, no JVD present, no carotid bruits present. CARDIAC: S1, S2 present. RRR. No murmur, rubs, or gallops. RESPIRATORY: CTAB, no increased effort of breathing, no rales, rhonchi, or wheezing. ABDOMEN: soft, nontender, nondistended. EXTREMITIES: no lower extremity edema. No rash/skin discoloration present. NEURO: strength/sensation equal and symmetric in bilateral upper and lower extremities. PSYCH: appropriate mood, affect, and judgement. Recent Labs 02/13/2023 White blood count 5.2, hemoglobin 12.6, hematocrit 38.7, platelets 265 Sodium 141, potassium 4.2, BUN 7, c (more content not included)... [facility] Evaluation + Plan note Note Date & Type Note Facility Evaluation + Plan note No data available for this section [facility] Hospital Discharge instructions Note Date & Type Note Facility Hospital Discharge instructions No data available for this section [facility] Progress note Note Date & Type Note Facility Progress note No data available for this section [facility] Summary Purpose Family History No Family History Records FoundNo Family History Records Found No data available for this section No Family History Records FoundNo Family History Records Found Advance Directives No Advanced Directives Records FoundNo Advanced Directives Records FoundNo Advanced Directives Records FoundNo Advanced Directives Records Found Additional Source Comments INFORMATION SOURCE (unrecogn ized section and content) DATE CREATED AUTHOR 03/11/2022 [facility] DATE CREATED AUTHOR AUTHOR'S ORGANIZ ATION 07/21/2023 [facility] EPIC DATE CREATED AUTHOR AUTHOR'S ORGANIZ ATION 08/02/2023 [facility] DATE CREATED AUTHOR AUTHOR'S ORGANIZ ATION 06/04/2024 [facility] Patient Care team informatio n (unrecognized section and content) Personnel Name: Ronnie Gregorio MD Address: Address: [address] [place] [address] FOR RECORDS PERTAINING TO PATIENTS WHO ARE OR HAVE BEEN ENROLLED IN A CHEMICAL DEPENDENCY/SUBSTANCEABUSE PROGRAM, SOME INFORMATION MAY BE OMITTED. This clinical summary was aggregated from multiple sources. Caution should be exercised in using it in the provision of clinical care. This summary normalizes information from multiple sources, and as a consequence, information in this document may materially change the coding, format and clinical context of patient data. In addition, data may be omitted in some cases. CLINICAL DECISIONS SHOULD BE BASED ON THE PRIMARY CLINICAL RECORDS. [facility] [employer] provides no warranty or guarantee of the accuracy or completeness of information in this document.
--- NOTE | 2024-06-12 07:40 | CA_ITS ---
Patient Name: JOVAN RITTER MR#: [id number] : 1985 Exam Date: 06/12/2024 Ordering Doctor: DR. Mahamed Gonzalez M.D. ECHOCARDIOGRAM REPORT PROCEDURE: CA ECHO DOPPLER COMPLETE INDICATIONS: Chronic systolic heart failure COMPARISON: None. DESCRIPTION: COMPLETE ECHOCARDIOGRAM Real-time transthoracic echocardiography with 2D, M-mode, spectral and color flow Doppler performed. QUALITY: Technical quality was good. LEFT VENTRICLE: Mild dilatation. Normal left ventricular wall thickness. LV EF: Global left ventricular systolic function is moderately decreased. Visual estimation of left ventricular ejection fraction is 35-40%. Abnormal septal motion; may be related to underlying bundle branch block. DIASTOLIC: Unable to assess diastolic function. Underlying rhythm appears to be atrial fibrillation. ATRIAL SEPTUM: Inadequately seen. LEFT ATRIUM: Normal chamber size. RIGHT ATRIUM: Normal chamber size. RIGHT VENTRICLE: Normal chamber size. Normal right ventricular systolic function. TRICUSPID VALVE: Normal mobility and thickness. No stenosis with trivial regurgitation. No evidence of pulmonary hypertension. RVSP 26mmHg MITRAL VALVE: Normal mobility and thickness. No evidence of mitral valve stenosis. There is no mitral annular calcification. Trivial mitral regurgitation. AORTIC VALVE: Normal trileaflet appearance. No visible sclerosis. Normal leaflet mobility. No evidence of aortic valve stenosis. No aortic regurgitation. AORTIC ROOT: Normal diameter and appearance. PULMONIC VALVE: Normal thickness and mobility. No stenosis. No regurgitation. PERICARDIUM: No evidence of pericardial effusion. IVC: Collapses with inspirations. Mildly dilated measuring 2.2cm. CONCLUSION: 1. Global left ventricular systolic function is moderately reduced; visually estimated ejection fraction is 35 to 40% 2. The left ventricle is mildly dilated 3. Normal right ventricular size and systolic function 4. No significant valvular abnormalities Adult Echocardiography Procedure Report Left Ventricle LVEDD (3.7 - 5.6 cm): 5.41 cm LVESD (2.2 - 4.0 cm): 4.26 cm LVIVS thickness (0.6 - 1.2 cm): 0.82 cm LVPW thickness (0.5 - 1.0 cm): 0.74 cm e': 0.15 m/s E - e': 4.46 LVOT Max Gradient: 4.00 mm[Hg] LVOT Area (cm2): 1.00 m/s Peak Velocity (LVOT): 1.00 m/s Mean Velocity (LVOT): 0.70 m/s LVOT Diameter 2.02 cm Left Atrium LA Volume Index (2D A2C): 29.26 ml/m2 Left Atrium Systolic Dimension: 3.37 cm Mitral Valve MV E to A Ratio: 1.14 Mitral Valve A-Wave Peak Velocity: 0.60 m/s Mitral Valve E-Wave Peak Velocity: 0.69 m/s Right Ventricle RV Internal Diastolic Dimension: 3.51 cm Aorta AO Root Diam: 3.13 cm Ascending Ao Diam: 2.70 cm Aortic Valve AoV Area (Peak Binu): 2.40 cm2, 2.40 cm2 AoV Area (VTI): 2.34 cm2, 2.34 cm2 Peak Velocity(Antegrade Flow): 1.34 m/s Peak Gradient(Antegrade Flow): 7.15 mm[Hg] Mean Velocity(Antegrade Flow): 0.95 m/s Mean Gradient(Antegrade Flow): 4.09 mm[Hg] Velocity Time Integral: 30.40 cm Tricuspid Valve Peak Velocity (Regurgitant Flow): 2.10 m/s, 2.00 m/s Pulmonic Valve Mean Gradient: 2.53 mm[Hg] Mean Velocity: 0.75 m/s Peak Velocity: 1.02 m/s, 0.97 m/s Peak Gradient: 4.20 mm[Hg], 3.80 mm[Hg] Right Atrium Right Atrium Systolic Pressure: 49.99 ml, 49.99 ml Dictated by: Mendy Leavitt M.D. on 06/12/2024 at 13:24 Approved by: Mendy Leavitt M.D. on 06/12/2024 at 13:31
== END 2024-06-12 07:37 | disposition home or self-care (01) ==
PROVIDERS: PCP Nurse Practitioner Family; Visit Provider Internal Medicine Cardiovascular Disease
DX: I25.10 Atherosclerotic heart disease of native coronary artery without angina pectoris (principal); I50.22 Chronic systolic (congestive) heart failure
CPT/HCPCS: 36415; 80048; 80061; 84450; 84460; 93306; 93356

== ENCOUNTER 2024-06-12 07:39 | Outpatient (OUT) | payer OTHER, SELFPAY ==
--- OUTSIDE RECORDS SUMMARY | 2024-06-12 07:44 | XMS_ITS | CCD ---
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] Onset: 02-28-2022 Episodic Other [...] Range Facility Office Visiton 06-01-2024 Follow-up visit [id number] Jovan Horton 1985 F Date Provider Department Center 06/01/2024 [id number] VALLECILLO ELVIN Conrad Family History Problem Relation Age of Onset Coronary artery disease Mother Cancer Mother Other Mother Other Father Coronary artery disease Father COPD Father Other Maternal Grandmother Family Status - Relation Status Age at Mother Father Maternal Grandmother Alive Level of Service:41728 [place] OFFICE/OUTPATIENT ESTABLISHED MOD MDM 30 MIN Reason for Visit and Comments: Coronary Artery Disease [187] Congestive Heart Failure [127] Hyperlipidemia [182] Hypertension [949086] - Taking torsemide PRN. Weight Loss [193744] - Has lost 35# since last visit in Jan 2023. Dizziness [810379] Normal [facility] Orders Onlyon 06-01-2024 Orders Only [id number] Jovan Horton 1985 F Date Provider Department Center 06/01/2024 ANDREW LANCASTER ELVIN Conrad Family History Problem Relation Age of Onset Coronary artery disease Mother Cancer Mother Other Mother Other Father Coronary artery disease Father COPD Father Other Maternal Grandmother Family Status - Relation Status Age at Mother Father Maternal Grandmother Alive Normal [facility] Consent for Treatmenton 07-18 Consent for Treatment [id number] Normal [facility] MRA Venogram Headon 08-01-19 MRA Venogram Head [...] Transcribed by: JESUS Technologist: LUZ MARINA Normal [facility] MRI Brain w/ + w/o Contrasto n [...] Vueway Contrast amount in ml's: 10 Normal [facility] RAD - MRI Screening Formon 0 08-01-2023 RAD - MRI Screening Form [id number] Normal [facility] Physician Orderon 07-19-2023 Physician Order [id number] DC#1.00TIFF Normal [facility] INSULINon 03-07-2022 Insulin 8.8 uIU/mL Normal 2.6-24.9 [facility] Comment on above: Performed By: #### I NSULIN #### [facility] [address] [address] [address] Souleymane Greer FREE THYROXINE INDEX T7on FTI 3.26 Normal 1.30-4.50 [facility] Comment on above: Performed By: #### T 7, LIPID #### [facility] [address] [address] [address] Souleymane Greer T3U 35.0 % Normal 30.0-39.0 [facility] Comment on above: Performed By: #### T 7, LIPID #### [facility] [address] [address] [address] Souleymane Greer T4 [Mass/Vol] 9.30 ug/dL Normal 4.80-13.90 [facility] Comment on above: Performed By: #### T 7, LIPID #### [facility] [address] [place] [address] Dr. Souleymane Greer GLYCOHEMOGLOBIN A1Con 2021 ADA RECOMMENDATION SEE BELOW Normal [facility] Comment on above: Result Comment: ADA RECOMMENDED LIMIT 4.0 - 6.0 ADA THERAPEUTIC TARGET < 7.0 ACTION SUGGESTED > 7.0 Performed By: #### A 1C #### [facility] [address] [place] [address] Dr. Souleymane Greer Glucose [Mass/Vol] 97 mg/dL Normal [facility] Comment on above: Performed By: #### A 1C #### [facility] [address] [place] [address] Dr. Souleymane Greer HbA1c (Bld) [Mass fraction] 5.0 % Normal 4.5-6.2 [facility] Comment on above: Performed By: #### A 1C #### [facility] [address] [place] [address] Dr. Souleymane Greer LIPID PROFILEon 03-06-2022 CHOL-HDL RATIO NORM SEE BELOW Normal [facility] Comment on above: Result Comment: 3.3 - 4.4 LOW RISK 4.4 - 7.1 AVERAGE RISK 7.1 - 11.0 MODERATE RISK >11.0 HIGH RISK Performed By: #### T 7, LIPID #### [facility] [address] [place] [address] Dr. Souleymane Greer Cholesterol [Mass/Vol] 102 mg/dL Normal <=200 [facility] Comment on above: Performed By: #### T 7, LIPID #### [facility] [address] [address] [address] Souleymane Greer Cholesterol in HDL [Mass/Vol] 27 mg/dL Critically low 40-60 [facility] Comment on above: Performed By: #### T 7, LIPID #### [facility] [address] [address] [address] Souleymane Greer Cholesterol in LDL [Mass/Vol] 59.4 mg/dL Normal [facility] Comment on above: Performed By: #### T 7, LIPID #### [facility] [address] [address] [address] Souleymane Greer Cholesterol.total/Cho lesterol in HDL [Mass ratio] 3.8 {ratio} Normal [facility] Comment on above: Performed By: #### T 7, LIPID #### [facility] [address] [address] [address] Souleymane Greer HDL NORMAL > or = 60 mg/dl - LOW CARDIOVASCULAR RISK <40 mg/dl - HIGH CARDIOVASCULAR RISK Normal [facility] Comment on above: Performed By: #### T 7, LIPID #### [facility] [address] [place] [address] Dr. Souleymane Greer LDL CALC NORMAL SEE BELOW Normal [facility] Comment on above: Result Comment: <100 mg/dl OPTIMAL 100 - 129 mg/dl NEAR OR ABOVE OPTIMAL 130 - 159 mg/dl BORDERLINE HIGH 160 - 189 mg/dl HIGH >190 mg/dl VERY HIGH Performed By: #### T 7, LIPID #### [facility] [address] [place] [address] Dr. Souleymane Greer Triglyceride [Mass/Vol] 78 mg/dL Normal <=150 [facility] Comment on above: Performed By: #### T 7, LIPID #### [facility] [address] [address] [address] Souleymane Greer VLDL CALC 15.6 mg/dL Normal [facility] Comment on above: Performed By: #### T 7, LIPID #### [facility] [address] [address] [address] Souleymane Greer TSHon 03-06-2022 TSH 1.266 uIU/mL Normal 0.358-3.740 [facility] Comment on above: Performed By: #### T SH #### [facility] [address] [place] [address] Dr. Souleymane Greer BNPon 02-21-2022 Natriuretic peptide B (Bld) [Mass/Vol] 696.0 pg/mL Critically high <=450.0 [facility] Comment on above: Performed By: #### C MP, BNP #### [facility] [address] [place] [address] Dr. Souleymane Greer CBC AUTO DIFFon 02-21-2022 BASO # 0.0 103/ul Normal 0.0-0.1 [facility] Comment on above: Performed By: #### C BC #### [facility] [address] [place] [address] Dr. Souleymane Greer Basophils/100 WBC (Bld) 0.4 % Normal 0.2-2.0 [facility] Comment on above: Performed By: #### C BC #### [facility] [address] [place] [address] Dr. Souleymane Greer EO # 0.1 103/ul Normal 0.0-0.7 [facility] Comment on above: Performed By: #### C BC #### [facility] [address] [place] [address] Dr. Souleymane Greer Eosinophils/100 WBC (Bld) 2.2 % Normal 0.9-7.0 [facility] Comment on above: Performed By: #### C BC #### [facility] [address] [place] [address] Dr. Souleymane Greer Erythrocyte distribution width (RBC) [Ratio] 12.6 % Normal 11.0-15.0 [facility] Comment on above: Performed By: #### C BC #### [facility] [address] [place] [address] Dr. Souleymane Greer Hematocrit (Bld) [Volume fraction] 39.3 % Normal 36.0-48.0 [facility] Comment on above: Performed By: #### C BC #### [facility] [address] [place] [address] Dr. Souleymane Greer Hemoglobin (Bld) [Mass/Vol] 12.7 g/dL Normal 12.0-16.0 [facility] Comment on above: Performed By: #### C BC #### [facility] [address] [place] [address] Dr. Souleymane Greer IG # 0.01 10e3/ul Normal 0.00-0.03 [facility] Comment on above: Performed By: #### C BC #### [facility] [address] [place] [address] Dr. Souleymane Greer IG % 0.2 % Normal 0.0-0.5 [facility] Comment on above: Performed By: #### C BC #### [facility] [address] [place] [address] Dr. Souleymane Greer LYMPH # 1.5 103/ul Normal 1.2-3.8 [facility] Comment on above: Performed By: #### C BC #### [facility] [address] [place] [address] Dr. Souleymane Greer Lymphocytes/100 WBC (Bld) 27.0 % Normal 20.5-60.0 [facility] Comment on above: Performed By: #### C BC #### [facility] [address] [place] [address] Dr. Souleymane Greer MANUAL DIFF REQ NO Normal [facility] Comment on above: Performed By: #### C BC #### [facility] [address] [place] [address] Dr. Souleymane Greer MCH (RBC) [Entitic mass] 29.5 pg Normal 26.7-34.0 [facility] Comment on above: Performed By: #### C BC #### [facility] [address] [place] [address] Dr. Souleymane Greer MCHC (RBC) [Mass/Vol] 32.3 g/dL Normal 29.9-35.2 [facility] Comment on above: Performed By: #### C BC #### [facility] [address] [place] [address] Dr. Souleymane Greer MCV (RBC) [Entitic vol] 91.4 fL Normal 81.0-99.0 [facility] Comment on above: Performed By: #### C BC #### [facility] [address] [place] [address] Dr. Souleymane Greer MONO # 0.3 103/ul Normal 0.3-0.8 [facility] Comment on above: Performed By: #### C BC #### [facility] [address] [place] [address] Dr. Souleymane Greer Monocytes/100 WBC (Bld) 6.0 % Normal 1.7-12.0 [facility] Comment on above: Performed By: #### C BC #### [facility] [address] [place] [address] Dr. Souleymane Greer NEUT # 3.5 103/ul Normal 1.4-6.5 [facility] Comment on above: Performed By: #### C BC #### [facility] [address] [place] [address] Dr. Souleymane Greer Neutrophils/100 WBC (Bld) 64.2 % Normal 43.0-75.0 [facility] Comment on above: Performed By: #### C BC #### [facility] [address] [place] [address] Dr. Souleymane Greer Platelet mean volume (Bld) [Entitic vol] 8.8 fL Critically low 9.5-13.5 [facility] Comment on above: Performed By: #### C BC #### [facility] [address] [place] [address] Dr. Souleymane Greer PLT 276 103/ul Normal 150-450 [facility] Comment on above: Performed By: #### C BC #### [facility] [address] [place] [address] Dr. Souleymane Greer RBC 4.30 106/ul Normal 4.20-5.40 [facility] Comment on above: Performed By: #### C BC #### [facility] [address] [place] [address] Dr. Souleymane Greer WBC 5.5 103/ul Normal 4.0-11.0 [facility] Comment on above: Performed By: #### C BC #### [facility] [address] [place] [address] Dr. Souleymane Greer PROF 14(COMP METB)on 022 Albumin [Mass/Vol] 3.9 g/dL Normal 3.4-5.0 [facility] Comment on above: Performed By: #### C MP, BNP #### [facility] [address] [place] [address] Dr. Souleymane Greer Albumin/Globulin [Mass ratio] 1.3 {ratio} Normal [facility] Comment on above: Performed By: #### C MP, BNP #### [facility] [address] [address] [address] Souleymane Greer ALP [Catalytic activity/Vol] 93 U/L Normal 46-116 [facility] Comment on above: Performed By: #### C MP, BNP #### [facility] [address] [place] [address] Dr. Souleymane Greer ALT [Catalytic activity/Vol] 17 U/L Normal 14-59 [facility] Comment on above: Performed By: #### C MP, BNP #### [facility] [address] [place] [address] Dr. Souleymane Greer Anion gap [Moles/Vol] 9.8 mmol/L Normal [facility] Comment on above: Performed By: #### C MP, BNP #### [facility] [address] [place] [address] Dr. Souleymane Greer AST [Catalytic activity/Vol] 8 U/L Critically low 15-37 [facility] Comment on above: Performed By: #### C MP, BNP #### [facility] [address] [place] [address] Dr. Souleymane Greer Bilirubin [Mass/Vol] 0.4 mg/dL Normal 0.2-1.0 [facility] Comment on above: Performed By: #### C MP, BNP #### [facility] [address] [place] [address] Dr. Souleymane Greer Calcium [Mass/Vol] 8.9 mg/dL Normal 8.5-10.1 [facility] Comment on above: Performed By: #### C MP, BNP #### [facility] [address] [place] [address] Dr. Souleymane Greer Chloride [Moles/Vol] 105 mmol/L Normal 98-107 [facility] Comment on above: Performed By: #### C MP, BNP #### [facility] [address] [place] [address] Dr. Souleymane Greer CO2 [Moles/Vol] 28.6 mmol/L Normal 21.0-32.0 [facility] Comment on above: Performed By: #### C MP, BNP #### [facility] [address] [address] [address] Souleymane Greer Creatinine [Mass/Vol] 0.79 mg/dL Normal 0.55-1.02 [facility] Comment on above: Performed By: #### C MP, BNP #### [facility] [address] [place] [address] Dr. Souleymane Greer EGFR-AF NIGERIAN >60 Normal >=60 [facility] Comment on above: Performed By: #### C MP, BNP #### [facility] [address] [address] [address] Souleymane Greer EGFR-NON AF NIGERIAN >60 Normal >=60 [facility] Comment on above: Performed By: #### C MP, BNP #### [facility] [address] [place] [address] Dr. Souleymane Greer Globulin (S) [Mass/Vol] 2.9 g/dL Normal [facility] Comment on above: Performed By: #### C MP, BNP #### [facility] [address] [place] [address] Dr. Souleymane Greer Glucose [Mass/Vol] 95 mg/dL Normal 74-106 [facility] Comment on above: Performed By: #### C MP, BNP #### [facility] [address] [address] [address] Souleymane Greer Potassium [Moles/Vol] 4.4 mmol/L Normal 3.5-5.1 [facility] Comment on above: Performed By: #### C MP, BNP #### [facility] [address] [address] [address] Souleymane Greer Protein [Mass/Vol] 6.8 g/dL Normal 6.4-8.2 [facility] Comment on above: Performed By: #### C MP, BNP #### [facility] [address] [address] [address] Souleymane Greer Sodium [Moles/Vol] 139 mmol/L Normal 136-145 [facility] Comment on above: Performed By: #### C MP, BNP #### [facility] [address] [address] [address] Souleymane Greer Urea nitrogen [Mass/Vol] 9.0 mg/dL Normal 7.0-18.0 [facility] Comment on above: Performed By: #### C MP, BNP #### [facility] [address] [place] [address] Dr. Souleymane Greer Urea nitrogen/Creatinine [Mass ratio] 11.4 mg/mg Normal [facility] Comment on above: Performed By: #### C MP, BNP #### [facility] [address] [place] [address] Dr. Souleymane Greer Encounters Encounter Date Encounter Type Care Provider Facility Start: 06-01-2024 End: 06-01-2024 ambulatory [facility] Start: 08-01-2023 End: 08-02-2023 ambulatory Billy Measn [place] [place]: 08-01-2023 End: 08-01-2023 Patient encounter procedure Billy Means [facility] Start: 07-19-2023 End: 07-19-2023 ambulatory BILLY MEANS Not Available Start: 03-06-2022 End: 03-07-2022 ambulatory RAFY YANES Facility:[facility] Start: 02-27-2022 End: 02-27-2022 ambulatory RAFY YANES Facility:[facility] Start: 02-21-2022 End: 02-22-2022 ambulatory KEEGAN LANDEROS Facility: Procedures Date Procedure Procedure Detail Performing Clinician section Billy freeman Cholecystectomy Blily saldivar Tonsillectomy Billy suarez Payers Date Payer Category Payer Unknown [id number] [id number] [id number] 1984 Unknown [id number] [id number] [id number] 1984 Unknown [id number] 2.16.84 [id number] 1984 Unknown [id number] 2.16.84 [id number] 1984 Unknown [id number] 2.16.8 [id number] 1960 Medicaid [id number] Social History Date Type Detail Facility Tobacco Current, Cigarettes [facility] Comment on above: 10 cigarettes/day Tobacco smoking status No Smokin g Status Entered [facility] Sex Assigned At Female [facility] Progress note 06-01-2024 Note Date & Type Note Facility 06-01-2024 Note b [facility] Progress note 06-01-2024 Note Date & Type Note Facility 06-01-2024 Note [facility] Subjective Jovan Horton is a [...] Essential hypernatremia History of section History of [place] (myocardial infarction) Hypertensive urgency Ischemic cardiomyopathy Multigravida [...] BUN 7, c (more content not included)... [facility] Evaluation + Plan note Note Date & Type Note Facility Evaluation + Plan note No data available for this section [facility] Hospital Discharge instructions Note Date & Type Note Facility Hospital Discharge instructions No data available for this section [facility] Progress note Note Date & Type Note Facility Progress note No data available for this section [facility] Summary Purpose Family History No Family [...] DATE CREATED AUTHOR AUTHOR'S ORGANIZ ATION 07/21/2023 [facility] EPIC DATE CREATED AUTHOR AUTHOR'S ORGANIZ ATION 08/02/2023 [facility] DATE CREATED AUTHOR AUTHOR'S ORGANIZ ATION 06/04/2024 [facility] Patient Care team informatio n (unrecognized section and content) Personnel Name: Ronnie Gregorio MD Address: Address: [address] [place] [address] FOR RECORDS PERTAINING TO PATIENTS WHO ARE [...] BE BASED ON THE PRIMARY CLINICAL RECORDS. [facility] [employer] provides no warranty or guarantee of the accuracy or completeness of information in this document.
[2024-06-12 08:13] LABS: Alanine Aminotransferase 14 U/L (14-59); Anion Gap 8.3; Aspartate Amino Transferase 10 U/L (15-37); Calcium 8.5 mg/dL (8.5-10.1); Carbon Dioxide 31.7 mmol/L (21.0-32.0); Chloride 104 mmol/L (98-107); Cholesterol 135 mg/dL (<=200); Estimated GFR (African America >60 (>=60 mL/min/1.73m^2); Estimated GFR (Non-African Ame >60 (>=60 mL/min/1.73m^2); Glucose 98 mg/dL (74-106); HDL Cholesterol 34 mg/dL (40-60); Sodium 140 mmol/L (136-145); Triglycerides 100 mg/dL (<=150)
== END 2024-06-12 07:40 | disposition home or self-care (01) ==
LOC: LAB 07:42
PROVIDERS: PCP Nurse Practitioner Family; Visit Provider Internal Medicine Cardiovascular Disease
DX: I25.10 Atherosclerotic heart disease of native coronary artery without angina pectoris (principal); I50.22 Chronic systolic (congestive) heart failure
CPT/HCPCS: 36415; 80048; 80061; 84450; 84460

== ENCOUNTER 2024-08-27 15:55 | Outpatient (OUT) | payer OTHER, SELFPAY ==
[2024-08-27 16:33] LABS: Anion Gap 10.9; BUN Creatinine Ratio 13.2; Calcium 8.6 mg/dL (8.5-10.1); Carbon Dioxide 28.2 mmol/L (21.0-32.0); Chloride 104 mmol/L (98-107); Estimated GFR (African America >60 (>=60 mL/min/1.73m^2); Estimated GFR (Non-African Ame >60 (>=60 mL/min/1.73m^2); Glucose 79 mg/dL (74-106); Potassium 4.1 mmol/L (3.5-5.1); Sodium 139 mmol/L (136-145)
== END 2024-08-27 15:56 | disposition home or self-care (01) ==
LOC: LAB 15:58
PROVIDERS: PCP Nurse Practitioner Family; Visit Provider Nurse Practitioner Family
DX: I50.23 Acute on chronic systolic (congestive) heart failure (principal)
CPT/HCPCS: 36415; 80048; 83880

== ENCOUNTER 2025-01-31 19:18 | Emergency (ER) | payer OTHER, SELFPAY ==
--- OUTSIDE RECORDS SUMMARY | 2025-01-31 19:27 | XMS_ITS | CCD ---
Author Organization [facility] CliniSyva Care Team Providers Care Circulation Librarian Name Role Phone SVITLANA YANES Primary Care Unavailable DR ANITA DESAI Admitting Unavailable DR ANITA DESAI Attending Unavailable VICKI GRANT Consulting Unavailable JOAQUÍN SVITLANA Admitting Unavailable SVITLANA YANES Attending Unavailable JOAQUÍN, SVITLANA Primary Care Unavailable JOAQUÍN SVITLANA Consulting Unavailable KEEGAN PHELPS Admitting Unavailable KEEGAN PHELPS Attending Unavailable JOAQUÍN, SVITLANA Primary Care Unavailable KEEGAN PHELPS Consulting Unavailable BILLY MEANS Attending Unavailable BHAKTI GALVEZ Referring Unavailable Ronnie Gregorio Primary Care Physician [phone] Billy Means Referring Unavailable Billy Means Attending Unavailable Billy Means Admitting Unavailable KEEGAN PHELPS Attending Unavailable LILLIAN REEVES Attending Unavailable Joaquín CRAVEN-Svitlana KELLEY S Primary Care Provider NELLA MADDEN Attending Unavailable JOAQUÍN, SVITLANA S Primary Care Unavailable NELLA MADDEN Referring Unavailable NELLA MADDEN Attending Unavailable NELLA MADDEN Referring Unavailable JOAQUÍN, SVITLANA S Primary Care Unavailable Joaquín Svitlana Michelle Primary Care Unavailable Nella Madden Attending Unavailable Chano Nella Admitting Unavailable MADDENDANIA OWENA Referring Unavailable JOAQUÍN, SVITLANA S Primary Care Unavailable Joaquín PROGRAM THERAPIST-C, Svitlana Michelle Primary Care Provider Nella Madden MD Attending Provider Medications Current Medications Medication Drug Class(es) Dates Sig (Normalized) Sig (Original) aspirin 81 mg delayed release oral tablet (3 sources) Platelet Aggregation Inhibitor, Nonsteroidal Anti-inflammatory Drug take 1 tablet by mouth once daily aspirin 81 mg EC tablet Take 1 tablet (81 mg) by mouth once daily. as directed Active atorvastatin 80 mg oral tablet (4 sources) HMG-CoA Reductase Inhibitor Start: 06-01-2024 End: 11-02-2025 take 1 tablet by mouth once daily at bedtime atorvastatin (Lipitor) 80 mg tablet Indications: Mixed hyperlipidemia Take 1 tablet (80 mg) by mouth once daily at bedtime. 90 tablet 3 11/02/2024 11/02/2025 Active benazepril / hydroCHLOROthiazide (1 source) Thiazide Diuretic, Angiotensin Converting Enzyme Inhibitor Start: 01-11-2010 take 1 tablet by mouth once daily benazepril-hydroch lorothiazide 20 mg-12.5 mg oral tablet 1 tab(s), Oral, Daily, Refill(s) 0 Start Date: 01/11/10 Status: Ordered carvedilol 12.5 mg oral tablet (5 sources) alpha-Adrenergic Nestor, beta-Adrenergic Nestor Start: 09-11-2024 End: 11-02-2025 take 1 tablet by mouth twice daily carvedilol (Coreg) 12.5 mg tablet Indications: Ischemic cardiomyopathy , Essential hypertension , Abnormal EKG , Chronic systolic congestive heart failure, NYHA class 3 Take 1 tablet (12.5 mg) by mouth 2 times a day. 180 tablet 3 11/02/2024 11/02/2025 Active End: 09-11-2024 take 1 tablet by mouth twice daily carvedilol (Coreg) 6.25 mg tablet Take 1 tablet (6.25 mg) by mouth 2 times a day. 09/11/2024 Discontinued (Reorder) digoxin 0.125 mg oral tablet (2 sources) Cardiac Glycoside Start: 11-02-2024 End: 11-02-2025 take 1 tablet by mouth once daily digoxin (Lanoxin) 125 MCG tablet Indications: Ischemic cardiomyopathy , CHF (congestive heart failure), NYHA class II, acute on chronic, systolic Take 1 tablet (125 mcg) by mouth once daily. 90 tablet 3 11/02/2024 11/02/2025 Active empagliflozin 10 mg oral tablet (4 sources) Sodium-Glucose Cotransporter 2 Inhibitor Start: 09-11-2024 End: 11-02-2025 take 1 tablet by mouth once daily empagliflozin (Jardiance) 10 mg tablet Indications: Ischemic cardiomyopathy , Chronic systolic congestive heart failure, NYHA class 3 Take 1 tablet (10 mg) by mouth once daily. 90 tablet 3 11/02/2024 11/02/2025 Active furosemide 20 mg oral tablet (4 sources) Loop Diuretic Start: 09-11-2024 End: 11-02-2025 take 1 tablet by mouth once daily as needed furosemide (Lasix) 20 mg tablet Indications: Ischemic cardiomyopathy , Essential hypertension , Chronic systolic congestive heart failure, NYHA class 3 Take 1 tablet (20 mg) by mouth once daily as needed (daily as needed before menstrual cycle). 90 tablet 3 11/02/2024 11/02/2025 Active Depo-Provera (1 source) Progestin Start: 08-19-2011 inject 400 mg by intramuscular injection every three months Depo-Provera 400 mg, IntraMuscular, q3mo Start Date: 08/19/11 Status: Ordered 24 hr metoprolol succinate 50 mg extended release oral tablet (1 source) beta-Adrenergic Nestor Start: 01-11-2010 metoprolol 50 mg ER Tab Oral, BID, Refills(s) 0 Start Date: 01/11/10 Status: Ordered sacubitril 97 mg / valsartan 103 mg oral tablet (5 sources) Angiotensin 2 Receptor Nestor Start: 09-02-2024 End: 11-02-2025 take 1 tablet by mouth twice daily sacubitriL-valsart an (Entresto) 97-103 mg tablet Indications: Chronic systolic congestive heart failure, NYHA class 3 Take 1 tablet by mouth 2 times a day. 180 tablet 3 11/02/2024 11/02/2025 Active spironolactone 50 mg oral tablet (5 sources) Aldosterone Antagonist Start: 09-11-2024 End: 11-02-2025 take 1 tablet by mouth once daily before mealtime spironolactone (Aldactone) 50 mg tablet Indications: Ischemic cardiomyopathy , Chronic systolic congestive heart failure, NYHA class 3 Take 1 tablet (50 mg) by mouth once daily in the morning. Take before meals. 90 tablet 3 11/02/2024 11/02/2025 Active Completed/Discontinued Medications Medication Drug Class(es) Dates Sig [...] involving left anterior descending coronary artery] Onset: 2 Chronic Administrative/social admission (5 sources) First encounter by subject; Translations: [Persons encountering health services in other specified circumstances] Onset: 5 09-11-2024 Episodic Congestive heart failure; nonhypertensive (20 sources) Chronic systolic (congestive) heart failure; Translations: [Acute on chronic systolic (congestive) heart failure] Onset: 1 Chronic Coronary atherosclerosis and other heart disease (20 sources) Atherosclerotic heart disease of rincon coronary artery without angina pectoris; Translations: [Ischemic cardiomyopathy] Onset: 1 Chronic Coronary atherosclerosis and other heart disease (4 sources) Presence of coronary angioplasty implant and graft; Translations: [Presence of coronary angioplasty implant and graft] Onset: 2 Episodic Diabetes mellitus without complication (1 source) Other abnormal glucose; Translations: [OTHER ABNORMAL GLUCOSE] Onset: 2 Episodic Disorders of lipid metabolism (9 sources) Pure hypercholesterolemia, unspecified; Translations: [Mixed hyperlipidemia] Onset: 5 Chronic Disorders of teeth and jaw (5 sources) Other specified disorders of teeth and supporting structures; Translations: [Periapical abscess without sinus] Onset: 2 Episodic Essential hypertension (15 sources) Essential (primary) hypertension; Translations: [Hypertensive disorder] Onset: 2 Chronic Osteoarthritis (2 sources) Unspecified osteoarthritis, unspecified site; Translations: [Arthritis] Onset: 2 04-07-2013 Chronic Other aftercare (3 sources) Other nursing home (current) drug therapy; Translations: [OTH ENGINE ASSEMBLER CURRENT DRUG THERAPY] Onset: 2 Episodic Other aftercare (5 sources) Treatment changed; Translations: [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] Onset: 5 09-11-2024 Episodic Other nutritional; endocrine; and metabolic disorders (2 sources) Morbid (severe) obesity due to excess calories; Translations: [Morbid (severe) obesity due to excess calories] Onset: 5 Chronic Other nutritional; endocrine; and metabolic disorders (3 sources) Body mass index 30+ - obesity; Translations: [Body mass index (BMI) 38.0-38.9, adult] Onset: 5 11-02-2024 Chronic Other nutritional; endocrine; and metabolic disorders (2 sources) Body mass index (BMI) 38.0-38.9, adult; Translations: [Body mass index (BMI) 38.0-38.9, adult] Onset: 5 Chronic Other nutritional; endocrine; and metabolic disorders (2 sources) Body mass index (BMI) 40.0-44.9, adult; Translations: [Body mass index (BMI) 40.0-44.9, adult (Multi)] Onset: 5 Chronic Other screening for suspected conditions (not mental disorders or infectious disease) (7 sources) Electrocardiogram abnormal; Translations: [Abnormal electrocardiogram [ECG] [EKG]] Onset: 5 09-11-2024 Episodic Pancreatic disorders (not diabetes) (1 source) Pancreatitis 04-07-2013 Episodic Residual codes; unclassified (1 source) Acquired absence of other specified parts of digestive tract; Translations: [ACQ ABSENCE OTH PART DIGESTV TRACT] Onset: 2 Episodic Substance-related disorders (8 sources) Nicotine dependence, cigarettes, uncomplicated; Translations: [Smoker] Onset: 2 09-11-2024 Chronic Unclassified (1 source) Optic Nerve Swelling 08-19-2011 Past or Other Problems Problem Classification Problem Date Documented Da te Episodic/Chronic Other non-traumatic joint disorders (1 source) Knee pain Onset: 08-19-2011 07-31-2013 Episodic Other nutritional; endocrine; and metabolic disorders (4 sources) Body mass index 40+ - severely obese; Translations: [Body mass index (BMI) 40.0-44.9, adult] Onset: 09-11-2024 Resolved: 11-02-2024 09-11-2024 Chronic Residual codes; unclassified (2 sources) Tobacco use; Translations: [Tobacco use] Onset: 06-01-2024 Episodic Results Test Name Value Interpretation Reference Range Facility BNP ser/plasOrdered By: Daniel Madden on 01-29-2025 Natriuretic peptide B (Bld) [Mass/Vol] 63.0 pg/mL 5-100 [facility] Calcium [Mass/volume] in Ser um or PlasmaOrdered By: Nella Madden on 01-29-2025 Calcium [Mass/Vol] 8.7 mg/dL 8.6-10.3 [facility] Carbon dioxide, total [Moles /volume] in Serum or PlasmaOrdered By: Nella Madden on 01-29-2025 CO2 [Moles/Vol] 27.7 mmol/L 21.0-31.0 [facility] Chloride [Moles/volume] in S gabby or PlasmaOrdered By: Nella Madden on 01-29-2025 Chloride [Moles/Vol] 104 mmol/L 98-107 [facility] Creatinine [Mass/volume] in Serum or PlasmaOrdered By: Nella Madden on 01-29-2025 Creatinine [Mass/Vol] 0.76 mg/dL 0.60-1.20 [facility] Glomerular filtration rate [ Volume Rate/Area] in Serum, Plasma or Blood by CreatinineOrdered By: Nella Madden on 01-29-2025 Glomerular filtration rate [Volume Rate/Area] in Serum, Plasma or Blood by Creatinine > 60.0 mL/Min [facility] Glucose [Mass/volume] in Ser um or PlasmaOrdered By: Nella Madden on 01-29-2025 Glucose [Mass/Vol] 77 mg/dL 70-100 [facility] Comment on above: ADA recommended refe rence rangeRandom Glucose Reference Range is dependent on time and content of last meal. Glucose of more than 200 mg/dL in a nonstressed, ambulatory subject supports the diagnosis of Diabetes Mellitus. No Panel InformationOrdered By: Nella Madden on 01-29-2025 Pharmacy Creatinine Clearance (Chem N/A [facility] Potassium [Moles/volume] in Serum or PlasmaOrdered By: Nella Madden on 01-29-2025 Potassium [Moles/Vol] 4.7 mmol/L 3.5-5.1 [facility] Serum or plasma anion gap de terminationOrdered By: Nella Madden on 01-29-2025 Anion gap [Moles/Vol] 9.0 mmol/L 6.0-15.0 [facility] Sodium [Moles/volume] in Ser um or PlasmaOrdered By: Nella Madden on 01-29-2025 Sodium [Moles/Vol] 136 mmol/L 136-145 [facility] Urea nitrogen [Mass/volume] in Serum or PlasmaOrdered By: Nella Madden on 01-29-2025 Urea nitrogen [Mass/Vol] 9 mg/dL 7-25 [facility] TRANSTHORACIC ECHO (TTE) QUINTERO ITEDon 12-04-2024 TRANSTHORACIC ECHO (TTE) LIMITED [address], [address] [place] [address] TRANSTHORACIC ECHOCARDIOGRAM REPORT Patient Name: JOVAN HORTON Reading Physician: [id number] Yoko Robbins MD, [facility] Study Date: 12/04/2024 Ordering Provider: [id number] NELLA MADDEN MRN/PID: [id number] Fellow: Nurse: Date of /Age: 12 1985 39 Engraver Tender: Rimma canada RDCS, RVT Gender Assigned at F Additional Staff: : Height: 167.64 cm Admit Date: Weight: 109.32 kg Admission Status: Outpatient BSA / BMI: 2.17 m2 / 38.90 Department Location: [facility] kg/m2 [place] Blood Pressure: 130 /82 mmHg Study Type: TRANSTHORACIC ECHO (TTE) LIMITED Diagnosis/ICD: Ischemic cardiomyopathy-I25 .5; Acute on chronic systolic (congestive) heart failure (CHF)-I50.23 Indication: Abnormal EKG, CAD, ND and PTCA, HTN, Hyperlipidemia, Tobacco Abuse, Family History of CAD, Hypernatremia, Morbid Obesity, Marijuana Use CPT Codes: Echo Limited-26919 Study Detail: The following Echo studies were performed: 2D and M-Mode. PHYSICIAN INTERPRETATION: Left Ventricle: Left ventricular ejection fraction is mildly decreased by visual estimate at 45-50%. There is global hypokinesis of the left ventricle with minor regional variations. The left ventricular cavity size is normal. There is mild increased septal and normal posterior left ventricular wall thickness. Left ventricular diastolic filling was not assessed. Left Atrium: The left atrial size is normal. Right Ventricle: The right ventricle is normal in size. There is normal right ventricular global systolic function. Right Atrium: The right atrial size is normal. Aortic Valve: The aortic valve is trileaflet. Aortic valve regurgitation was not assessed. Mitral Valve: The mitral valve is normal in structure. Mitral valve regurgitation was not assessed. Tricuspid Valve: The tricuspid valve is structurally normal. Tricuspid regurgitation was not assessed. Pulmonic Valve: The pulmonic valve is structurally normal. The pulmonic valve regurgitation was not assessed. Pericardium: No pericardial effusion noted. Aorta: The aortic root is normal. Systemic Veins: The inferior vena cava appears normal in size, IVC inspiratory collapse is not well visualized. 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 CONCLUSIONS: 1. Left ventricular ejection fraction is mildly decreased by visual estimate at 45-50%. 2. There is global hypokinesis of the left ventricle with minor regional variations. 3. There is normal right ventricular global systolic function. 4. 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 QUANTITATIVE DATA SUMMARY: 2D MEASUREMENTS: Normal Ranges: Ao Root s: 3.40 cm LAs: 3.31 cm (2.7-4.0cm) RVIDd: 2.54 cm (0.9-3.6cm) IVSd: 1.00 cm (0.6-1.1cm) LVPWd: 0.86 cm (0.6-1.1cm) LVIDd: 5.57 cm (3.9-5.9cm) LVIDs: 4.30 cm LV Mass Index: 91.3 g/m2 LVEDV Index: 56.57 ml/m2 LV % FS 22.8 % LEFT ATRIUM: Normal Ranges: LA Vol A4C: 58.2 ml (22+/-6mL/m2) LA Vol A2C: 35.7 ml LA Vol BP: 47.6 ml LA Vol Index A4C: 26.9ml/m2 LA Vol Index A2C: 16.5 ml/m2 LA Vol Index BP: 22.0 ml/m2 LA Vol A4C: 54.8 ml LA Vol A2C: 34.4 ml LA Vol Index BSA: 20.6 ml/m2 LV SYSTOLIC FUNCTION: Normal Ranges: EF-A4C View: 42 % (>=55%) EF-A2C View: 60 % EF-Biplane: 51 % EF-Visual: 48 % LV EF Reported: 48 % AORTIC VALVE: Normal Ranges: LVOT Diameter: 2.23 cm (1.8-2.4cm) RIGHT VENTRICLE: RV Basal 3.06 cm RV Mid 1.70 cm RV Major 6.6 cm TRICUSPID VALVE/RVSP: Normal Ranges: Est. RA Pressure: 3 mmHg [id number] Yoko Robbins MD, FACC Electronically signed on 12/04/2024 at 6:00:08 PM Final Normal [facility] US Heart TransthoracicOrdere d By: Yoko Robbins on 12-04-2024 LA vol index A/L 22.0 ml/m2 [facility] Work Phone: LV A4C EF 41.6 [facility] Work Phone: LV Biplane EF 51 % [facility] Work Phone: LV EF 48 % [facility] Work Phone: LVIDd 5.57 cm [facility] Work Phone: LVOT diam 2.23 cm [facility] Work Phone: [facility] Work Phone: Heart Transthoracicon [address], [address] [address] TRANSTHORACIC ECHOCARDIOGRAM REPORT Patient Name: JOVAN Coto Physician: [id number] Yoko Robbins MD, FACC Study Date: 12/04/2024 Ordering Provider: [id number] NELLA MADDEN MRN/PID: [id number] Fellow: Nurse: Date of /Age: 12 1985 Engraver Tender: Rimma canada RDCS, RVT Gender Assigned at F Additional Staff: : Height: 167.64 cm Admit Date: Weight: 109.32 kg Admission Status: Outpatient BSA / BMI: 2.17 m2 / 38.90 Department Location: [facility] Heart kg/m2 [place] Blood Pressure: 130 /82 mmHg Study Type: TRANSTHORACIC ECHO (TTE) LIMITED Diagnosis/ICD: Ischemic cardiomyopathy-I25 .5; Acute on chronic systolic (congestive) heart failure (CHF)-I50.23 Indication: Abnormal EKG, CAD, ND and PTCA, HTN, Hyperlipidemia, Tobacco Abuse, Family History of CAD, Hypernatremia, Morbid Obesity, Marijuana Use CPT Codes: Echo Limited-46029 Study Detail: The following Echo studies were performed: 2D and M-Mode. PHYSICIAN INTERPRETATION: Left Ventricle: Left ventricular ejection fraction is mildly decreased by visual estimate at 45-50%. There is global hypokinesis of the left ventricle with minor regional variations. The left ventricular cavity size is normal. There is mild increased septal and normal posterior left ventricular wall thickness. Left ventricular diastolic filling was not assessed. Left Atrium: The left atrial size is normal. Right Ventricle: The right ventricle is normal in size. There is normal right ventricular global systolic function. Right Atrium: The right atrial size is normal. Aortic Valve: The aortic valve is trileaflet. Aortic valve regurgitation was not assessed. Mitral Valve: The mitral valve is normal in structure. Mitral valve regurgitation was not assessed. Tricuspid Valve: The tricuspid valve is structurally normal. Tricuspid regurgitation was not assessed. Pulmonic Valve: The pulmonic valve is structurally normal. The pulmonic valve regurgitation was not assessed. Pericardium: No pericardial effusion noted. Aorta: The aortic root is normal. Systemic Veins: The inferior vena cava appears normal in size, IVC inspiratory collapse is not well visualized. 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 CONCLUSIONS: 1. Left ventricular ejection fraction is mildly decreased by visual estimate at 45-50%. 2. There is global hypokinesis of the left ventricle with minor regional variations. 3. There is normal right ventricular global systolic function. 4. 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 QUANTITATIVE DATA SUMMARY: 2D MEASUREMENTS: Normal Ranges: Ao Root s: 3.40 cm LAs: 3.31 cm (2.7-4.0cm) RVIDd: 2.54 cm (0.9-3.6cm) IVSd: 1.00 cm (0.6-1.1cm) LVPWd: 0.86 cm (0.6-1.1cm) LVIDd: 5.57 cm (3.9-5.9cm) LVIDs: 4.30 cm LV Mass Index: 91.3 g/m2 LVEDV Index: 56.57 ml/m2 LV % FS 22.8 % LEFT ATRIUM: Normal Ranges: LA Vol A4C: 58.2 ml (22+/-6mL/m2) LA Vol A2C: 35.7 ml LA Vol BP: 47.6 ml LA Vol Index A4C: 26.9ml/m2 LA Vol Index A2C: 16.5 ml/m2 LA Vol Index BP: 22.0 ml/m2 LA Vol A4C: 54.8 ml LA Vol A2C: 34.4 ml LA Vol Index BSA: 20.6 ml/m2 LV SYSTOLIC FUNCTION: Normal Ranges: EF-A4C View: 42 % (>=55%) EF-A2C View: 60 % EF-Biplane: 51 % EF-Visual: 48 % LV EF Reported: 48 % AORTIC VALVE: Normal Ranges: LVOT Diameter: 2.23 cm (1.8-2.4cm) RIGHT VENTRICLE: RV Basal 3.06 cm RV Mid 1.70 cm RV Major 6.6 cm TRICUSPID VALVE/RVSP: Normal Ranges: Est. RA Pressure: 3 mmHg [id number] Yoko Robbins MD, FACC Electronically signed on 12/04/2024 at 6:00:08 PM Final Yoko Escobar MD - 12/04/[address], [address] [facility], [place] [address] TRANSTHORACIC ECHOCARDIOGRAM REPORT Patient Name: JOVAN HORTON Reading Physician: [id number] Yoko Robbins MD, [facility] Study Date: 12/04/2024 Ordering Provider: [id number] NELLA MADDEN MRN/PID: [id number] Fellow: Nurse: Date of /Age: 12 1985 / 39 Engraver Tender: Rimma canada RDCS, RVT Gender Assigned at F Additional Staff: : Height: 167.64 cm Admit Date: Weight: 109.32 kg Admission Status: Outpatient BSA / BMI: 2.17 m2 / 38.90 Department Location: [facility] Heart kg/m2 [place] Blood Pressure: 130 /82 mmHg Study Type: TRANSTHORACIC ECHO (TTE) LIMITED Diagnosis/ICD: Ischemic cardiomyopathy-I25 .5; Acute on chronic systolic (congestive) heart failure (CHF)-I50.23 Indication: Abnormal EKG, CAD, ND and PTCA, HTN, Hyperlipidemia, Tobacco Abuse, Family History of CAD, Hypernatremia, Morbid Obesity, Marijuana Use CPT Codes: Echo Limited-38366 Study Detail: The following Echo studies were performed: 2D and M-Mode. PHYSICIAN INTERPRETATION: Left Ventricle: Left ventricular ejection fraction is mildly decreased by visual estimate at 45-50%. There is global hypokinesis of the left ventricle with minor regional variations. The left ventricular cavity size is normal. There is mild increased septal and normal posterior left ventricular wall thickness. Left ventricular diastolic filling was not assessed. Left Atrium: The left atrial size is normal. Right Ventricle: The right ventricle is normal in size. There is normal right ventricular global systolic function. Right Atrium: The right atrial size is normal. Aortic Valve: The aortic valve is trileaflet. Aortic valve regurgitation was not assessed. Mitral Valve: The mitral valve is normal in structure. Mitral valve regurgitation was not assessed. Tricuspid Valve: The tricuspid valve is structurally normal. Tricuspid regurgitation was not assessed. Pulmonic Valve: The pulmonic valve is structurally normal. The pulmonic valve regurgitation was not assessed. Pericardium: No pericardial effusion noted. Aorta: The aortic root is normal. Systemic Veins: The inferior vena cava appears normal in size, IVC inspiratory collapse is not well visualized. 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 CONCLUSIONS: 1. Left ventricular ejection fraction is mildly decreased by visual estimate at 45-50%. 2. There is global hypokinesis of the left ventricle with minor regional variations. 3. There is normal right ventricular global systolic function. 4. 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 QUANTITATIVE DATA SUMMARY: 2D MEASUREMENTS: Normal Ranges: Ao Root s: 3.40 cm LAs: 3.31 cm (2.7-4.0cm) RVIDd: 2.54 cm (0.9-3.6cm) IVSd: 1.00 cm (0.6-1.1cm) LVPWd: 0.86 cm (0.6-1.1cm) LVIDd: 5.57 cm (3.9-5.9cm) LVIDs: 4.30 cm LV Mass Index: 91.3 g/m2 LVEDV Index: 56.57 ml/m2 LV % FS 22.8 % LEFT ATRIUM: Normal Ranges: LA Vol A4C: 58.2 ml (22+/-6mL/m2) LA Vol A2C: 35.7 ml LA Vol BP: 47.6 ml LA Vol Index A4C: 26.9ml/m2 LA Vol Index A2C: 16.5 ml/m2 LA Vol Index BP: 22.0 ml/m2 LA Vol A4C: 54.8 ml LA Vol A2C: 34.4 ml LA Vol Index BSA: 20.6 ml/m2 LV SYSTOLIC FUNCTION: Normal Ranges: EF-A4C View: 42 % (>=55%) EF-A2C View: 60 % EF-Biplane: 51 % EF-Visual: 48 % LV EF Reported: 48 % AORTIC VALVE: Normal Ranges: LVOT Diameter: 2.23 cm (1.8-2.4cm) RIGHT VENTRICLE: RV Basal 3.06 cm RV Mid 1.70 cm RV Major 6.6 cm TRICUSPID VALVE/RVSP: Normal Ranges: Est. RA Pressure: 3 mmHg [id number] Yoko Robbins MD, FACC Electronically signed on 12/04/2024 at 6:00:08 PM Final [facility] Work Phone: Basic Metabolic Panel 10-18 Anion gap [Moles/Vol] 8.7 mmol/L Normal 6.0-15.0 [facility] Comment on above: Performed By: #### B MP #### [address] Calcium [Mass/Vol] 9.0 mg/dL Normal 8.6-10.3 [facility] Comment on above: Result Comment: PERF ORMED BY: [place] [address] PATHOLOGIST HIDE AND SKIN CLASSER NATALY GRANT M.D. Performed By: #### B MP #### [address] Chloride [Moles/Vol] 104 mmol/L Normal 98-107 [facility] Comment on above: Performed By: #### B MP #### [address] CO2 [Moles/Vol] 28.8 mmol/L Normal 21.0-31.0 [facility] Comment on above: Performed By: #### B MP #### [address] Creatinine [Mass/Vol] 0.69 mg/dL Normal 0.60-1.20 [facility] Comment on above: Performed By: #### B MP #### [place] [address] [place] GFR/1.73 sq M.predicted MDRD (S/P/Bld) [Vol rate/Area] mL/min/{1.73_m2} Normal [facility] Comment on above: Performed By: #### B MP #### [address] Glucose [Mass/Vol] 85 mg/dL Normal 70-100 [facility] Comment on above: Result Comment: [place] Glucose Reference Range is dependent on time and content of last meal. Glucose of more than 200 mg/dL in a nonstressed, ambulatory subject supports the diagnosis of Diabetes Mellitus. ADA recommended reference range Performed By: #### B MP #### [facility] [address] [place] [address] [place] Potassium [Moles/Vol] 4.5 mmol/L Normal 3.5-5.1 [facility] Comment on above: Performed By: #### B MP #### [facility] [address] [place] [address] [place] Sodium [Moles/Vol] 137 mmol/L Normal 136-145 [facility] Comment on above: Performed By: #### B MP #### [facility] [address] Urea nitrogen [Mass/Vol] 9 mg/dL Normal 7-25 [facility] Comment on above: Performed By: #### B MP #### [facility] [address] ECG 12 [place] 09-27-2024 [facility] Work Phone: [facility] Work Phone: Office Visiton 08-27-2024 Follow-up visit [id number] Jovan Horton 1985 F Date Provider Department Center 08/27/2024 KEEGAN OLMOS ELVIN [place] Family History Problem Relation Age of Onset Coronary artery disease Mother Cancer Mother Other Mother Other Father Coronary artery disease Father COPD Father Other Maternal Grandmother Family Status - Relation Status Age at Mother Father Maternal Grandmother Alive Level of Service:84376 [place] OFFICE/OUTPATIENT ESTABLISHED MOD MDM 30 MIN Reason for Visit and Comments: Congestive Heart Failure [127] Hypertension [942656] Coronary Artery Disease [187] Normal [facility] Orders Onlyon 08-27-2024 Orders Only [id number] Jovan Horton 1985 F Date Provider Department Center 08/27/2024 ANDREW LANCASTER Family History Problem Relation Age of Onset Coronary artery disease Mother Cancer Mother Other Mother Other Father Coronary artery disease Father COPD Father Other Maternal Grandmother Family Status - Relation Status Age at Mother Father Maternal Grandmother Alive Normal [facility] 36on 08-12-2024 36 Regarding echo result from 06/12/2024: MD Abeba Mobley MA Please inform the patient that her cardiac function is mildly worse than before, ejection fraction is now 35 to 40% versus 46% on last prior echo. When she was in the office I increased her Aldactone. Please make sure that she checks her blood pressure twice daily and call the measurements in 2 weeks. Depends on that I may do further adjustment of medications. I was finally able to get ahold of this patient after several attempts. She was keeping track of BP for awhile but stopped, as she said the increase in spironolactone was helping her BP. I asked her to starting taking it twice daily again and to call me in a few weeks with the readings. She verbalized understanding. Normal [facility] Office Visiton 06-01-2024 Follow-up visit [id number] Jovan Horton 1985 F Date Provider Department Center 06/01/2024 [id number] MCCAIN Family History Problem Relation Age of Onset Coronary artery disease Mother Cancer Mother Other Mother Other Father Coronary artery disease Father COPD Father Other Maternal Grandmother Family Status - Relation Status Age at Mother Father Maternal Grandmother Alive Level of Service:42113 [place] OFFICE/OUTPATIENT ESTABLISHED MOD MDM 30 MIN Reason for Visit and Comments: Coronary Artery Disease [187] Congestive Heart Failure [127] Hyperlipidemia [182] Hypertension [486910] - Taking torsemide PRN. Weight Loss [884451] - Has lost 35# since last visit in Jan 2023. Dizziness [240260] Normal [facility] Orders Onlyon 06-01-2024 Orders Only [id number] Jovan Horton 1985 F Date Provider Department Center 06/01/2024 ANDREW LANCASTER Family History Problem Relation Age of Onset Coronary artery disease Mother Cancer Mother Other Mother Other Father Coronary artery disease Father COPD Father Other Maternal Grandmother Family Status - Relation Status Age at Mother Father Maternal Grandmother Alive [facility] [place] [facility] Consent for Treatmenton 07-18 Consent for Treatment [id number]#[id number] [facility] MRA Venogram Headon 08-01-19 24 MRA Venogram Head Exam Date/Time: 08/01/2023 08:55 EDT Reason for Exam: [id number] Report IMPRESSION: Negative study EXAMINATION: MRA Venogram Head CLINICAL HISTORY: H4. COMPARISONS: None available. TECHNIQUE: Noncontrast multiplanar, 3-D [...] Transcribed by: JESUS Technologist: LUZ MARINA Normal [facility] MRI Brain w/ + w/o Contrasto [...] Vueway Contrast amount in ml's: 10 Normal [facility] RAD - MRI Screening Formon 0 08-01-2023 RAD - MRI Screening Form [id number]#[id number] Normal [facility] Physician Orderon 07-19-2023 Physician Order [id number]#[id number] Normal [facility] INSULINon 03-07-2022 Insulin 8.8 uIU/mL Normal 2.6-24.9 [facility] Comment on above: Performed By: #### I NSULIN #### [facility] [address] [place] [address] Dr. Souleymane Greer FREE THYROXINE INDEX T7on FTI 3.26 Normal 1.30-4.50 [facility] Comment on above: Performed By: #### T 7, LIPID #### [facility] [address] [address] [address] Souleymane Greer T3U 35.0 % Normal 30.0-39.0 [facility] Comment on above: Performed By: #### T 7, LIPID #### [facility] [address] [address] [address] Souleymane Greer T4 [Mass/Vol] 9.30 ug/dL Normal 4.80-13.90 [facility] Comment on above: Performed By: #### T 7, LIPID #### [facility] [address] [address] [address] Souleymane Greer GLYCOHEMOGLOBIN A1Con 2021 ADA RECOMMENDATION SEE BELOW Normal [facility] Comment on above: Result Comment: ADA RECOMMENDED LIMIT 4.0 - 6.0 ADA THERAPEUTIC TARGET < 7.0 ACTION SUGGESTED > 7.0 Performed By: #### A 1C #### [facility] [address] [place] [address] Dr. Souleymane Greer Glucose [Mass/Vol] 97 mg/dL Normal [facility] Comment on above: Performed By: #### A 1C #### [facility] [address] [place] [address] Dr. Souleymane Greer HbA1c (Bld) [Mass fraction] 5.0 % Normal 4.5-6.2 [facility] Comment on above: Performed By: #### A 1C #### [facility] [address] [place] [address] Dr. Souleymane Greer LIPID PROFILEon 03-06-2022 CHOL-HDL RATIO NORM SEE BELOW Normal [facility] Comment on above: Result Comment: 3.3 - 4.4 LOW RISK 4.4 - 7.1 AVERAGE RISK 7.1 - 11.0 MODERATE RISK >11.0 HIGH RISK Performed By: #### T 7, LIPID #### [facility] [address] [place] [address] Dr. Souleymane Greer Cholesterol [Mass/Vol] 102 mg/dL Normal <=200 [facility] Comment on above: Performed By: #### T 7, LIPID #### [facility] [address] [place] [address] Dr. Souleymane Greer Cholesterol in HDL [Mass/Vol] 27 mg/dL Critically low 40-60 [facility] Comment on above: Performed By: #### T 7, LIPID #### [facility] [address] [place] [address] Dr. Souleymane Greer Cholesterol in LDL [Mass/Vol] 59.4 mg/dL Normal [facility] Comment on above: Performed By: #### T 7, LIPID #### [facility] [address] [place] [address] Dr. Souleymane Greer Cholesterol.total/Choles terol in HDL [Mass ratio] 3.8 {ratio} Normal [facility] Comment on above: Performed By: #### T 7, LIPID #### [facility] [address] [address] [address] Souleymane Greer HDL NORMAL > or = 60 mg/dl - LOW CARDIOVASCULAR RISK <40 mg/dl - HIGH CARDIOVASCULAR RISK Normal [facility] Comment on above: Performed By: #### T 7, LIPID #### [facility] [address] [address] [address] Souleymane Greer LDL CALC NORMAL SEE BELOW Normal [facility] [place] Comment on above: Result Comment: <100 mg/dl OPTIMAL 100 - 129 mg/dl NEAR OR ABOVE OPTIMAL 130 - 159 mg/dl BORDERLINE HIGH 160 - 189 mg/dl HIGH >190 mg/dl VERY HIGH Performed By: #### T 7, LIPID #### [facility] [address] [place] [address] Dr. Souleymane Greer Triglyceride [Mass/Vol] 78 mg/dL Normal <=150 T [facility] Comment on above: Performed By: #### T 7, LIPID #### [facility] [address] [address] [address] Souleymane Greer VLDL CALC 15.6 mg/dL Normal [facility] Comment on above: Performed By: #### T 7, LIPID #### [facility] [address] [place] [address] Dr. Souleymane Greer TSHon 03-06-2022 TSH 1.266 uIU/mL Normal 0.358-3.740 [facility] Comment on above: Performed By: #### T SH #### [facility] [address] [place] [address] Dr. Souleymane Greer BNPon 02-21-2022 Natriuretic peptide B (Bld) [Mass/Vol] 696.0 pg/mL Critically high <=450.0 [facility] Comment on above: Performed By: #### C MP, BNP #### [facility] [address] [place] [address] Dr. Souleymane Greer CBC AUTO DIFFon 02-21-2022 BASO # 0.0 103/ul Normal 0.0-0.1 [facility] Comment on above: Performed By: #### C BC #### [facility] [address] [place] [address] Dr. Souleymane Greer Basophils/100 WBC (Bld) 0.4 % Normal 0.2-2.0 [facility] Comment on above: Performed By: #### C BC #### [facility] [address] [place] [address] Dr. Souleymane Greer EO # 0.1 103/ul Normal 0.0-0.7 [facility] Comment on above: Performed By: #### C BC #### [facility] [address] [place] [address] Dr. Souleymane Greer Eosinophils/100 WBC (Bld) 2.2 % Normal 0.9-7.0 [facility] Comment on above: Performed By: #### C BC #### [facility] [address] [place] [address] Dr. Souleymane Greer Erythrocyte distribution width (RBC) [Ratio] 12.6 % Normal 11.0-15.0 [facility] Comment on above: Performed By: #### C BC #### [facility] [address] [place] [address] Dr. Souleymane Greer Hematocrit (Bld) [Volume fraction] 39.3 % Normal 36.0-48.0 [facility] Comment on above: Performed By: #### C BC #### [facility] [address] [place] [address] Dr. Souleymane Greer Hemoglobin (Bld) [Mass/Vol] 12.7 g/dL Normal 12.0-16.0 [facility] Comment on above: Performed By: #### C BC #### [facility] [address] [place] [address] Dr. Souleymane Greer IG # 0.01 10e3/ul Normal 0.00-0.03 [facility] Comment on above: Performed By: #### C BC #### [facility] [address] [place] [address] Dr. Souleymane Greer IG % 0.2 % Normal 0.0-0.5 [facility] Comment on above: Performed By: #### C BC #### [facility] [address] [place] [address] Dr. Souleymane Greer LYMPH # 1.5 103/ul Normal 1.2-3.8 [facility] Comment on above: Performed By: #### C BC #### [facility] [address] [place] [address] Dr. Souleymane Greer Lymphocytes/100 WBC (Bld) 27.0 % Normal 20.5-60.0 [facility] Comment on above: Performed By: #### C BC #### [facility] [address] [place] [address] Dr. Souleymane Greer MANUAL DIFF REQ NO Normal [facility] [place] Comment on above: Performed By: #### C BC #### [facility] [address] [place] [address] Dr. Souleymane Greer MCH (RBC) [Entitic mass] 29.5 pg Normal 26.7-34.0 [facility] Comment on above: Performed By: #### C BC #### [facility] [address] [place] [address] Dr. Souleymane Greer MCHC (RBC) [Mass/Vol] 32.3 g/dL Normal 29.9-35.2 [facility] Comment on above: Performed By: #### C BC #### [facility] [address] [place] [address] Dr. Souleymane Greer MCV (RBC) [Entitic vol] 91.4 fL Normal 81.0-99.0 [facility] Comment on above: Performed By: #### C BC #### [facility] [address] [place] [address] Dr. Souleymane Greer MONO # 0.3 103/ul Normal 0.3-0.8 [facility] Comment on above: Performed By: #### C BC #### [facility] [address] [place] [address] Dr. Souleymane Greer Monocytes/100 WBC (Bld) 6.0 % Normal 1.7-12.0 [facility] Comment on above: Performed By: #### C BC #### [facility] [address] [address] [address] Souleymane Greer NEUT # 3.5 103/ul Normal 1.4-6.5 [facility] Comment on above: Performed By: #### C BC #### [facility] [address] [address] [address] Souleymane Greer Neutrophils/100 WBC (Bld) 64.2 % Normal 43.0-75.0 [facility] Comment on above: Performed By: #### C BC #### [facility] [address] [address] [address] Souleymane Greer Platelet mean volume (Bld) [Entitic vol] 8.8 fL Critically low 9.5-13.5 [facility] Comment on above: Performed By: #### C BC #### [facility] [address] [place] [address] Dr. Souleymane Greer PLT 276 103/ul Normal 150-450 [facility] Comment on above: Performed By: #### C BC #### [facility] [address] [place] [address] Dr. Souleymane Greer RBC 4.30 106/ul Normal 4.20-5.40 [facility] Comment on above: Performed By: #### C BC #### [facility] [address] [place] [address] Dr. Souleymane Greer WBC 5.5 103/ul Normal 4.0-11.0 [facility] Comment on above: Performed By: #### C BC #### [facility] [address] [place] [address] Dr. Souleymane Greer PROF 14(COMP METB)on 022 Albumin [Mass/Vol] 3.9 g/dL Normal 3.4-5.0 [facility] Comment on above: Performed By: #### C MP, BNP #### [facility] [address] [place] [address] Dr. Souleymane Greer Albumin/Globulin [Mass ratio] 1.3 {ratio} Normal [facility] Comment on above: Performed By: #### C MP, BNP #### [facility] [address] [address] [address] Souleymane Greer ALP [Catalytic activity/Vol] 93 U/L Normal 46-116 [facility] Comment on above: Performed By: #### C MP, BNP #### [facility] [address] [address] [address] Souleymane Greer ALT [Catalytic activity/Vol] 17 U/L Normal 14-59 [facility] Comment on above: Performed By: #### C MP, BNP #### [facility] [address] [address] [address] Souleymane Greer Anion gap [Moles/Vol] 9.8 mmol/L Normal [facility] Comment on above: Performed By: #### C MP, BNP #### [facility] [address] [address] [address] Souleymane Greer AST [Catalytic activity/Vol] 8 U/L Critically low 15-37 [facility] Comment on above: Performed By: #### C MP, BNP #### [facility] [address] [address] [address] Souleymane Greer Bilirubin [Mass/Vol] 0.4 mg/dL Normal 0.2-1.0 [facility] Comment on above: Performed By: #### C MP, BNP #### [facility] [address] [address] [address] Souleymane Greer Calcium [Mass/Vol] 8.9 mg/dL Normal 8.5-10.1 [facility] Comment on above: Performed By: #### C MP, BNP #### [facility] [address] [address] [address] Souleymane Greer Chloride [Moles/Vol] 105 mmol/L Normal 98-107 [facility] Comment on above: Performed By: #### C MP, BNP #### [facility] [address] [address] [address] Souleymane Greer CO2 [Moles/Vol] 28.6 mmol/L Normal 21.0-32.0 [facility] Comment on above: Performed By: #### C MP, BNP #### [facility] [address] [address] [address] Souleymane Greer Creatinine [Mass/Vol] 0.79 mg/dL Normal 0.55-1.02 [facility] Comment on above: Performed By: #### C MP, BNP #### [facility] [address] [address] [address] Souleymane Greer EGFR-AF DANISH >60 Normal >=60 [facility] Comment on above: Performed By: #### C MP, BNP #### [facility] [address] [address] [address] Souleymnae Greer EGFR-NON AF DANISH >60 Normal >=60 [facility] Comment on above: Performed By: #### C MP, BNP #### [facility] [address] [place] [address] Dr. Souleymane Greer Globulin (S) [Mass/Vol] 2.9 g/dL Normal [facility] Comment on above: Performed By: #### C MP, BNP #### [facility] [address] [address] [address] Souleymane Greer Glucose [Mass/Vol] 95 mg/dL Normal 74-106 [facility] Comment on above: Performed By: #### C MP, BNP #### [facility] [address] [place] [address] Dr. Souleymane Greer Potassium [Moles/Vol] 4.4 mmol/L Normal 3.5-5.1 [facility] Comment on above: Performed By: #### C MP, BNP #### [facility] [address] [address] [address] Souleymane Greer Protein [Mass/Vol] 6.8 g/dL Normal 6.4-8.2 [facility] Comment on above: Performed By: #### C MP, BNP #### [facility] [address] [address] [address] Souleymane Greer Sodium [Moles/Vol] 139 mmol/L Normal 136-145 [facility] Comment on above: Performed By: #### C MP, BNP #### [facility] [address] [place], [place] [address] Dr. Souleymane Greer Urea nitrogen [Mass/Vol] 9.0 mg/dL Normal 7.0-18.0 [facility] Comment on above: Performed By: #### C MP, BNP #### [facility] [address] [place], [place] [address] Dr. Souleymane Greer Urea nitrogen/Creatinine [Mass ratio] 11.4 mg/mg Normal [facility] Comment on above: Performed By: #### C MP, BNP #### [facility] [address] [place], [place] [address] Dr. Souleymane Greer Vital Signs Date Time Vital Sign Value [facility]forming [facility] 12-04-2024 09:54-0400 Body height 167.[address] 12-04-2024 09:54-0400 Body mass index (BMI) [Ratio] 38.9 kg/m2 [address] 12-04-2024 09:54-0400 Body weight 109.[address] 12-04-2024 09:54-0400 Diastolic blood pressure 82 mm[Hg] [address] 12-04-2024 09:54-0400 Systolic blood pressure 130 mm[Hg] [address] 11-02-2024 10:59-0400 Body height 167.6 cm Nella Madden MD Work Phone: [facility] 11-02-2024 10:59-0400 Body mass index (BMI) [Ratio] 38.9 kg/m2 Nella Madden MD Work Phone: [facility] 11-02-2024 10:59-0400 Body weight 109.32 kg Nella Madden MD Work Phone: [facility] 11-02-2024 10:59-0400 Diastolic blood pressure 76 mm[Hg] Nella Madden MD Work Phone: [facility] 11-02-2024 10:59-0400 Heart rate 60 /min Nella Madden MD Work Phone: [facility] 11-02-2024 10:59-0400 Systolic blood pressure 116 mm[Hg] Nella Madden MD Work Phone: [facility] 09-11-2024 09:24-0400 Diastolic blood pressure 88 mm[Hg] Nella Madden MD Work Phone: [facility] 09-11-2024 09:24-0400 Heart rate 65 /min Nella Madden MD Work Phone: [facility] 09-11-2024 09:24-0400 Systolic blood pressure 132 mm[Hg] Nella Madden MD Work Phone: [facility] 09-11-2024 09:22-0400 Body height 167.6 cm Nella Madden MD Work Phone: [facility] 09-11-2024 09:22-0400 Body mass index (BMI) [Ratio] 40.51 kg/m2 Nella Madden MD Work Phone: [facility] 09-11-2024 09:22-0400 Body weight 113.85 kg Nella Madden MD Work Phone: [facility] Encounters Encounter Date Encounter Type Care Provider Facility Start: 01-29-2025 End: 01-29-2025 ambulatory Svitlana Yanes PROGRAM THERAPIST-C Work Phone: [facility] Work Phone: Start: 01-29-2025 End: 01-29-2025 Patient encounter procedure Nella Madden MD -[facility] [address] [facility] Work Phone: Start: 12-04-2024 End: 12-04-2024 ambulatory NELLA MADDEN [facility] Start: 12-04-2024 End: 12-04-2024 Subsequent hospital visit by physician Nadia Batista Echo/Vasc Room 2 [facility] Comment on above: Ischemic cardiomyopa thy; CHF (congestive heart failure), NYHA class II, acute on chronic, systolic Start: 11-02-2024 End: 11-02-2024 Office outpatient visit 25 minutes Nella Madden MD Work Phone: [facility] Comment on above: Coronary artery dise ase involving rincon coronary artery of rincon heart without angina pectoris; CHF (congestive heart failure), NYHA class II, acute on chronic, systolic; BMI 38.0-38.9,adult; Medication course changed; Ischemic cardiomyopathy; History of myocardial infarction; Mixed hyperlipidemia; Essential hypertension; Current smoker; Abnormal EKG; Chronic systolic congestive heart failure, NYHA class 3 Start: 11-02-2024 End: 11-02-2024 ambulatory [facility] Start: 10-29-2024 End: 10-29-2024 ambulatory Svitlana Yanes Facility:[facility] Start: 09-11-2024 End: 09-11-2024 Office outpatient new 45 minutes Nella Madden MD Work Phone: [facility] Comment on above: Chronic systolic con gestive heart failure, NYHA class 3; Mixed hyperlipidemia; Medication course changed; Essential hypertension; Abnormal EKG; Coronary artery disease involving rincon coronary artery of rincon heart without angina pectoris; S/P drug eluting coronary stent placement; History of myocardial infarction; Ischemic cardiomyopathy; BMI 40.0-44.9, adult (Multi); Current smoker Start: 09-11-2024 End: 09-11-2024 ambulatory [facility] Start: 08-27-2024 End: 08-27-[facility] Start: 06-01-2024 End: 06-01-2024 ambulatory [facility] Start: 08-01-2023 End: 08-02-2023 ambulatory Billy Means Facility:[facility] Start: 08-01-2023 End: 08-01-2023 Patient encounter procedure Billy Means [facility] Start: 07-19-2023 End: 07-19-2023 ambulatory BILLY MEANS Not Available Start: 03-06-2022 End: 03-07-2022 ambulatory SVITLANA YANES Facility:[facility] Start: 02-27-2022 End: 02-27-2022 ambulatory SVITLANA YANES Facility:[facility] Start: 02-21-2022 End: 02-22-2022 ambulatory KEEGAN PHELPS Facility:[facility] Procedures Date Procedure Procedure Detail Performing Clinician Start: 12-04-2024 Echo transthorc r-t 2d w/wo m-mode rec f-up/lmtd Nella Madden MD Work Phone: Start: 09-11-2024 Ecg routine ecg w/least 12 lds w/i&r Nella Madden MD Work Phone: Start: 12-05-2021 History of placement of stent for coronary artery disease S/P drug eluting coronary stent placement Nella Madden MD Work Phone: section Billy freeman Cholecystectomy Billy saldivar History of placement of stent for coronary artery disease S/P drug eluting coronary stent placement Nella Madden MD Work Phone: Tonsillectomy Billy suarez Plan of Treatment Date Care Activity Detail Author Start: 2034 Zoster Vaccines (1 of 2) Zoster Vaccines (1 of 2) [facility] Start: 12-04-2025 Echocardiography Echocardiogram [facility] Start: 02-12-2025 End: 02-12-2025 Patient encounter procedure 02/12/2025 11:00 AM EDT Office Visit [facility] [address] [facility] [address] [place] [address] Nella Madden MD [address] [facility] [address] [place] [address] [facility] Start: 01-18-2025 Influenza vaccination [facility] Start: 12-04-2024 End: 12-04-2024 Patient encounter procedure 12/04/2024 9:45 AM EDT Appointment [facility] [address] [facility] [address] [place] [address] [facility] Start: 11-02-2024 End: 11-02-2025 Basic metabolic 2000 panel - Serum or Plasma Basic Metabolic Panel Lab Routine Ischemic cardiomyopathy CHF (congestive heart failure), NYHA class II, acute on chronic, systolic Expected: 11/02/2024, Expires: 11/02/2025 [facility] Work Phone: Comment on above: Expected: 11/02/2024, Expires: Start: 11-02-2024 End: 11-02-2025 Natriuretic peptide B [Mass/volume] in Blood B-Type Natriuretic Peptide Lab Routine Ischemic cardiomyopathy CHF (congestive heart failure), NYHA class II, acute on chronic, systolic Expected: 11/02/2024, Expires: 11/02/2025 [facility] Work Phone: Comment on above: Expected: 11/02/2024, Expires: Start: 11-02-2024 End: 11-02-2026 Heart Transthoracic Transthoracic Echo Limited Echocardiography Routine Ischemic cardiomyopathy CHF (congestive heart failure), NYHA class II, acute on chronic, systolic Expected: 11/02/2024 (Approximate), Expires: 11/02/2026 [facility] Work Phone: Comment on above: Expected: 11/02/2024 (Approximate), Expi res: 11/02/2026 Start: 11-02-2024 End: 11-02-2024 Patient encounter procedure 11/02/2024 11:00 AM EDT Office Visit [facility] [address] [place] [address] [address] [place] [address] Nella Madden MD [address] [facility] [address] [place] [address] [facility] Start: 09-25-2024 End: 09-11-2025 Basic metabolic 2000 panel - Serum or Plasma Basic Metabolic Panel Lab Routine Chronic systolic congestive heart failure, NYHA class 3 Ischemic cardiomyopathy Expected: 09/25/2024 (Approximate), Expires: 09/11/2025 [facility] Service [facility] Work Phone: Comment on above: Expected: 09/25/2024 (Approximate), Expi res: 09/11/2025 Start: 2024 Screening for malignant neoplasm of breast Mammogram [facility] Start: 01-19-2024 COVID-19 Vaccine ( season) COVID-19 Vaccine ( season) [facility] Start: 05-30-2022 Echocardiography Echocardiogram [facility] Start: 11-26-2019 Yearly Adult Physical Yearly Adult Physical [facility] Start: 2011 HPV Vaccines (1 - 3-dose standard series) HPV Vaccines (1 - 3-dose standard series) [facility] Start: 04-26-2009 MMR Vaccines (1 of 1 - Standard series) MMR Vaccines (1 of 1 - Standard series) [facility] Start: 04-26-2009 Varicella vaccination Varicella Vaccines (1 of 2 - 13+ 2-dose series) [facility] Start: 2006 DTaP/Tdap/Td Vaccines (1 - Tdap) DTaP/Tdap/Td Vaccines (1 - Tdap) [facility] Start: 2005 Screening for malignant neoplasm of cervix [facility] Start: 2003 Hepatitis B Vaccines (1 of 3 - 19+ 3-dose series) Hepatitis B Vaccines (1 of 3 - 19+ 3-dose series) [facility] Start: 2003 Pneumococcal Vaccine: Pediatrics and At-Risk Adult Patients (1 of 2 - PCV) Pneumococcal Vaccine: Pediatrics and At-Risk Adult Patients (1 of 2 - PCV) [facility] Start: 2002 Diabetes mellitus screening Diabetes Screening [facility] Start: 2002 Hepatitis C screening Hepatitis C Screening [facility] Start: 1997 Varicella vaccination Varicella Vaccines (1 of 2 - 13+ 2-dose series) [facility] Start: 1985 MMR Vaccines (1 of 1 - Standard series) MMR Vaccines (1 of 1 - Standard series) [facility] Start: 1984 Creatinine measurement Creatinine Level [facility] Start: 1984 HIV screening HIV Screening [facility] Start: 1984 Lipid panel Lipid Panel [facility] Start: 1984 Potassium measurement Potassium Level [facility] Start: 1984 Yearly Adult Physical Yearly Adult Physical [facility] Immunizations Immunization Date Immunization Notes Care Provider Fa lucrecia 03-29-2009 influenza virus vaccine, unspecified formulation Nella Madden MD Work Phone: [facility] Work Phone: Payers Date Payer Category Payer Self-pay 2022 Medicaid [facility]ICA[facility] [id number] 1984 Unknown [id number] 1984 Unknown [id number] 1984 Unknown [id number] 1984 Unknown [id number] 1984 Unknown [id number] 1984 Unknown [id number] 1984 Unknown [id number] 1984 Unknown [id number] 1959 Medicaid [id number] Unknown [id number] Unknown [employer] [id number] Social History Date Type Detail Facility Tobacco Current, Cigarettes [facility] Comment on above: 10 cigarettes/day Tobacco smoking status No Smokin g Status Entered [facility] Start: 09-11-2024 End: 11-02-2024 Sex Assigned At Female [facility] Start: 09-11-2024 End: 11-02-2024 Tobacco smoking status NHIS Smokes tobacco daily [facility] Work Phone: History of tobacco use Cigarette Smoker [facility] Work Phone: Start: 09-11-2024 End: 11-02-2024 Tobacco use and exposure Smokeless tobacco non-user [facility] Work Phone: Start: 09-11-2024 Alcoholic beverage intake Ex-drinker (finding) [facility] Work Phone: Start: 09-11-2024 End: 11-02-2024 History of Social function [facility] Work Phone: Start: 1984 Sex assigned at Not on file [facility] Work Phone: Start: 09-01-2024 End: 09-11-2024 Exposure to SARS-CoV-2 (event) Not sure [facility] Start: 11-02-2024 Alcoholic beverage intake Lifetime non-drinker (finding) [facility] Work Phone: Start: 09-02-2024 Sex Female [facility] Tobacco smoking stat us DCIS Unknown if ever smoked [facility] Work Phone: Sex Female (finding) [facility] Start: 1984 Sex Assigned At Female F [facility] Clinical Notes 06-01-2024 to 11-02-2024 Nella Madden MD - 11/02/2024 11:00 AM EDTPatient InstructionsAttachmentsNella Madden MD - 09/11/2024 9:15 AM EDTPatient Instructions Note Date & Type Note Facility 11-02-2024 History of Present illness Narrative Images from the original note were not included. Chief Complaint: Chief Complaint Patient presents with Follow-up 6 week follow up for Chronic systolic congestive heart failure, NYHA class 3 Patient with atherosclerotic rincon vessel coronary artery disease without angina pectoralis, chronic systolic left heart failure, multiple risk factors, presents for follow-up, we are trying to maximize guideline directed medical therapy. Accompanied by to the office. The most recent office visit 3 months ago, carvedilol was increased to 12.5 mg p.o. twice daily. Jardiance 10 mg p.o. daily was recommended. Lasix 20 mg daily as needed before her menstrual cycle when she starts gaining fluid. Subjective : Review of Systems reports feeling much improved compared to where we started. Still can get short of breath with unaccustomed physical activity, no orthopnea PND or lower extremity edema. She is on maximum dose of Entresto at this time. She has poor dentition, and will be getting dental extraction soon. No palpitations lightheadedness presyncope or syncope. History so Far : Tobacco abuse, in remission Acute ST elevation myocardial infarction (STEMI) of lateral wall (CMS/HCC) Coronary artery disease Chronic systolic congestive heart failure (CMS/HCC) Cystic fibrosis carrier Essential hypernatremia History of section History of ND (myocardial infarction) Hypertensive urgency Ischemic cardiomyopathy Multigravida [...] risk human papillomavirus (HPV) DNA test positive Hyperlipidemia Past Medical History: Diagnosis Date CHF (congestive heart failure) (CMS/HCC) Coronary artery disease s/p PCI to 1st diag Hyperlipidemia Hypertension Family History Problem Relation Name Age of Onset Coronary artery disease Mother Cancer Mother Other (open heart surgery) Mother Other (open heart surgery) Father Coronary artery disease Father COPD Father Other (pacemaker) Maternal Grandmother Social History Tobacco Use Smoking status: Every Day Current packs/day: 0.50 Types: Cigarettes Smokeless tobacco: Never Substance Use Topics Alcohol use: Not Currently Drug use: Yes Types: Marijuana No Known Allergies Objective Wt Readings from Last 3 Encounters: 11/02/24 109 kg (241 lb) 09/11/24 114 kg (251 lb) Vitals: 11/02/24 1059 BP: 116/76 BP Location: Left arm Patient Position: Sitting Pulse: 60 Weight: 109 kg (241 lb) Height: 1.676 m (5' 6 ) Physical Exam: GENERAL APPEARANCE: in no acute distress. CHEST: Symmetric and non-tender. INTEGUMENT: Skin warm and dry HEENT: No pallor or scleral icterus. Poor dentition. NECK: Supple, no JVD, no bruit. NEURO/PSHCY: Alert and oriented x3; appropriate behavior and responses and responses LUNGS: Clear to auscultation bilaterally; normal respiratory effort. HEART: Rate and rhythm regular with no evident murmur; no gallop appreciated. ABDOMEN: Soft, non tender. MUSCULOSKELETAL: No gross deformities. EXTREMITIES: Warm There is no edema noted. Meds: Current Outpatient Medications Medication Instructions aspirin 81 mg, Daily atorvastatin (LIPITOR) 80 mg, Nightly carvedilol (COREG) 12.5 mg, oral, 2 times daily empagliflozin (JARDIANCE) 10 mg, oral, Daily furosemide (LASIX) 20 mg, oral, Daily PRN sacubitriL-valsartan (Entresto) 97-103 mg tablet 1 tablet, oral, 2 times daily spironolactone (ALDACTONE) 50 mg, oral, Daily before breakfast Allergies: Patient has no known allergies. October 29, 2024-BUN 9 creatinine 0.69 GFR greater than 60 sodium 137 potassium 4.5 glucose 85 Reviewed all available pertinent laboratory data and diagnostic testing results that occurred after the last office visit with me Assessment: 1. Coronary artery disease involving rincon coronary artery of rincon heart without angina pectoris Follow Up In Cardiology 2. BMI 38.0-38.9,adult 3. Medication course changed 4. Ischemic cardiomyopathy 5. History of myocardial infarction 6. Mixed hyperlipidemia 7. Essential hypertension 8. CHF (congestive heart failure), NYHA class II, acute on chronic, systolic 9. Current smoker 10. Abnormal EKG 11. Chronic systolic congestive heart failure, NYHA class 3 Clinical Decision Makin. Chronic systolic left heart failure-functional class II , NT proBNP level 468 August 2024 Echocardiogram May 2024-LVEF 35 to 40% unable to assess diastolic function patient is probably in atrial fibrillation RV systolic pressure 26. 2. CAD rincon vessel rincon heart, prior PCI and stent to the first major diagonal branch in the setting of ST elevation myocardial infarction Cardiac catheterization at that time reported normal left main luminal irregularities of the LAD percent occlusion of moderate-sized first diagonal branch with luminal irregularities of left circumflex artery luminal irregularities of the RCA patient received a 2.75 x 22 mm resolute Puneet drug-eluting stent 3. Hypertensive heart disease with left heart failure 4. Ischemic cardiomyopathy, LVEF May 2024 by echo 35 to 40% 5. Primary hypertension Today we will add digoxin 0.125 mg p.o. daily. She is using Lasix very rarely, and does not report lower extremity edema. She is on SGLT2 inhibitor therapy. I have initiated cardiac rehabilitation referral, patient and are interested in pursuing. I will see her back in 3 months. Limited echocardiogram basic metabolic profile BNP level prior to next visit. Follow up : 3 months IAraceli LPN am scribing for, and in the presence of Dr. Nella Madden MD, FACC. I, Dr. Nella Madden MD, FACC, personally performed the services described in the documentation as scribed by Araceli Mitchell LPN in my presence, and confirm it is both accurate and complete. documented in this encounter [facility] Work Phone: 11-02-2024 Instructions Araceli Knowles LPN - 11/02/2024 11:00 AM EDT Please bring all medicines, vitamins, and herbal supplements with you when you come to the office. Prescriptions will not be filled unless you are compliant with your follow up appointments or have a follow up appointment scheduled as per instruction of your physician. Refills should be requested at the time of your visit. BMI was above normal measurement. Current weight: 109 kg (241 lb) Weight change since last visit (-) denotes wt loss -10 lbs Weight loss needed to achieve BMI 25: 86.4 Lbs Weight loss needed to achieve BMI 30: 55.5 Lbs Provided instructions on dietary changes. The following attachments cannot be sent through Care Everywhere.Mediterranean Diet (Lithuanian)documented in this encounter [facility] Work Phone: 09-27-2024 Note Normal sinus rhythm at 65 bpm poor R wave progression, cannot exclude septal myocardial infarction, lateral myocardial infarction, first-degree AV block. Compared to the EKG from December 2022, [place] interval has increased from 176 ms to 208 ms [facility] 09-11-2024 History of Present illness Narrative Images from the original note were not included. Chief Complaint: Chief Complaint Patient presents with New Patient Visit Ischemic cardiomyopathy Patient is being seen for congestive heart failure hypertension and atherosclerotic rincon vessel coronary artery disease. Chronic exertional shortness of breath, weight gain at the start of her menstrual cycle time, upper abdominal discomfort left-sided chest and rib cage discomfort. Her current BMI is 40.5, average weight to 50 pounds, with the cyclical weight gain, she gets short of breath. Subjective : Review of Systems review of systems is negative or noncontributory except as noted above. Continues to have exertional shortness of breath functional class II/III, no orthopnea or PND, left anterior and epigastric chest pain, best described as atypical History so Far : Tobacco abuse, in remission Acute ST elevation myocardial infarction (STEMI) of lateral wall (CMS/HCC) Coronary artery disease Chronic systolic congestive heart failure (CMS/HCC) Cystic fibrosis carrier Essential hypernatremia History of section History of ND (myocardial infarction) Hypertensive urgency Ischemic cardiomyopathy Multigravida of advanced maternal age in first trimester On statin therapy S/P drug eluting coronary stent placement ST elevation myocardial infarction (STEMI) (CMS/HCC) Anxiety Candidiasis of skin General counseling and advice for contraceptive management Essential hypertension High risk sexual behavior Morbid obesity ([facility]) Optic neuritis Papilledema associated with increased intracranial pressure Solitary cyst of breast Tobacco use Vaginal high risk human papillomavirus (HPV) DNA test positive Hyperlipidemia Past Medical History: Diagnosis Date CHF (congestive heart failure) ([facility]) Coronary artery disease s/p PCI to 1st diag Hyperlipidemia Hypertension Family History Problem Relation Name Age of Onset Coronary artery disease Mother Cancer Mother Other (open heart surgery) Mother Other (open heart surgery) Father Coronary artery disease Father COPD Father Other (pacemaker) Maternal Grandmother Social History Tobacco Use Smoking status: Every Day Current packs/day: 0.50 Types: Cigarettes Smokeless tobacco: Never Substance Use Topics Alcohol use: Not Currently Drug use: Yes Types: Marijuana No Known Allergies Objective Wt Readings from Last 3 Encounters: 09/11/24 114 kg (251 lb) Vitals: 09/11/24 0922 09/11/24 0924 BP: 130/86 132/88 BP Location: Right arm Left arm Patient Position: Sitting Sitting Pulse: 65 Weight: 114 kg (251 lb) Height: 1.676 m (5' 6 ) Physical Exam: GENERAL APPEARANCE: in no acute distress. CHEST: Symmetric and non-tender. INTEGUMENT: Skin warm and dry HEENT: No gross abnormalities identified.No pallor or scleral icterus. NECK: Supple, no JVD, no bruit. NEURO/PSHCY: Alert and oriented x3; appropriate behavior and responses and responses LUNGS: Clear to auscultation bilaterally; normal respiratory effort. HEART: Rate and rhythm regular with no evident murmur; no gallop appreciated. ABDOMEN: Soft, non tender. MUSCULOSKELETAL: No gross deformities. EXTREMITIES: Warm There is no edema noted. Meds: Current Outpatient Medications Medication Instructions aspirin 81 mg, Daily atorvastatin (LIPITOR) 80 mg, Nightly carvedilol (COREG) 12.5 mg, oral, 2 times daily empagliflozin (JARDIANCE) 10 mg, oral, Daily furosemide (LASIX) 20 mg, oral, Daily PRN sacubitriL-valsartan (Entresto) 97-103 mg tablet 1 tablet, oral, 2 times daily spironolactone (ALDACTONE) 50 mg, oral, Daily before breakfast Allergies: Patient has no known allergies. LABS: August 2024 sodium 139 potassium 4.1 GFR greater than 60 creatinine 0.68 NT proBNP level 468 Total cholesterol 135 LDL 81 HDL 34 total cholesterol to HDL ratio 4.0 triglycerides 100 Reviewed all available pertinent laboratory data and diagnostic testing results that occurred after the last office visit with me Assessment: 1. Chronic systolic congestive heart failure, NYHA class 3 ECG 12 Lead carvedilol (Coreg) 12.5 mg tablet empagliflozin (Jardiance) 10 mg tablet furosemide (Lasix) 20 mg tablet sacubitriL-valsartan (Entresto) 97-103 mg tablet spironolactone (Aldactone) 50 mg tablet Basic Metabolic Panel Basic Metabolic Panel 2. Mixed hyperlipidemia 3. Medication course changed 4. Essential hypertension carvedilol (Coreg) 12.5 mg tablet furosemide (Lasix) 20 mg tablet 5. Abnormal EKG carvedilol (Coreg) 12.5 mg tablet 6. Coronary artery disease involving rincon coronary artery of rincon heart without angina pectoris Follow Up In Cardiology 7. S/P drug eluting coronary stent placement 8. History of myocardial infarction 9. Ischemic cardiomyopathy carvedilol (Coreg) 12.5 mg tablet empagliflozin (Jardiance) 10 mg tablet furosemide (Lasix) 20 mg tablet spironolactone (Aldactone) 50 mg tablet Basic Metabolic Panel Basic Metabolic Panel 10. BMI 40.0-44.9, adult (Multi) 11. Current smoker Clinical Decision Makin. Chronic systolic left heart failure-functional class II , NT proBNP level 468 August 2024 Echocardiogram May 2024-LVEF 35 to 40% unable to assess diastolic function patient is probably in atrial fibrillation RV systolic pressure 26. 2. CAD rincon vessel rincon heart, prior PCI and stent to the first major diagonal branch in the setting of ST elevation myocardial infarction Cardiac catheterization at that time reported normal left main luminal irregularities of the LAD percent occlusion of moderate-sized first diagonal branch with luminal irregularities of left circumflex artery luminal irregularities of the RCA patient received a 2.75 x 22 mm resolute Puneet drug-eluting stent 3. Hypertensive heart disease with left heart failure 4. Ischemic cardiomyopathy, LVEF May 2024 by echo 35 to 40% 5. Primary hypertension 6. Her chest pain is best described as atypical Patient is new to this provider. I reviewed prior notes from cardiovascular medicine [facility], provided by the [facility]. The note I have is from 08/27/2024, created by Keegan Phelps CNP. We will continue to maximize guideline directed medical therapy as tolerated. Orders provided Follow up : 3 months. I,Lolis Barron LPN am scribing for, and in the presence of Dr. Nella Madden MD, [facility]. I, Dr. Nella Madden MD, FAC, personally performed the services described in the documentation as scribed by Lolis Barron LPN in my presence, and confirm it is both accurate and complete. documented in this encounter [facility] Work Phone: 09-11-2024 Instructions Felicia Cadena RN - 09/11/2024 9:15 AM EDT Please bring all medicines, vitamins, and herbal supplements with you when you come to the office. Prescriptions will not be filled unless you are compliant with your follow up appointments or have a follow up appointment scheduled as per instruction of your physician. Refills should be requested at the time of your visit. EKG done in office today documented in this encounter [facility] Work Phone: 08-27-2024 Note Patient here for Ech o results. Patient states she has been having pain under rib cage on her left side. Patient states she has pain in her left side with deep breaths. Patient had labs in May of 2024. Patient states she has bad teeth and will being have 3 pulled in September. Review of Systems Cardiovascular: Positive for chest pain (left side under ribs). Respiratory: Positive for shortness of breath. [facility] 08-27-2024 Note Cardiovascular Medic ine [facility] SUBJECTIVE Chief Complaint Patient presents with Congestive Heart Failure Hypertension Coronary Artery Disease Jovan Horton is a 39 y.o. female here for follow-up. HPI PMHx: CAD, HFrEF, HTN She has started to have left sided chest pain about 1 week ago - located below her ribs. She has noticed she has weight gain around when she starts her period. She gains 15-20#. Her weight today is 265, she typically averages 250#. This causes her to feel more short of breath along with increased leg swelling, orthopnea. She is pending tooth extraction. Patient Active Problem List Diagnosis Tobacco abuse, in remission Acute ST elevation myocardial infarction (STEMI) of lateral wall (CMS/HCC) Coronary artery disease Chronic systolic congestive heart failure (CMS/HCC) Cystic fibrosis carrier Essential hypernatremia History of section History of ND (myocardial infarction) Hypertensive urgency Ischemic cardiomyopathy Multigravida of advanced maternal age in first trimester On statin therapy S/P drug eluting coronary stent placement ST elevation myocardial infarction (STEMI) ([facility]/HCC) Anxiety Candidiasis of skin General counseling and advice for contraceptive management Essential hypertension High risk sexual behavior Morbid obesity (CMS/HCC) Optic neuritis Papilledema associated with increased intracranial pressure Solitary cyst of breast Tobacco use Vaginal high risk human papillomavirus (HPV) DNA test positive Hyperlipidemia Past Medical History: Diagnosis Date CHF (congestive heart failure) (CMS/HCC) Coronary artery disease s/p PCI to 1st diag Hyperlipidemia Hypertension Family History Problem Relation Name Age of Onset Coronary artery disease Mother Cancer Mother Other (open heart surgery) Mother Other (open heart surgery) Father Coronary artery disease Father COPD Father Other (pacemaker) Maternal Grandmother Social History Tobacco Use Smoking status: Every Day Current packs/day: 0.50 Types: Cigarettes Smokeless tobacco: Never Substance Use Topics Alcohol use: Not Currently Drug use: Yes Types: Marijuana No Known Allergies ROS Cardiovascular: Positive for leg swelling, chest pain (left side under ribs). Respiratory: Positive for shortness of breath. OBJECTIVE Visit Vitals BP (!) 140/92 (BP Location: Left arm, Patient Position: Sitting) Pulse 63 Ht 1.676 m (5' 6 ) Wt 120 kg (265 lb) SpO2 99% BMI 42.77 kg/m??? OB Status Having periods Smoking Status Every Day BSA 2.36 m??? Medications: Current Outpatient Medications: aspirin 81 mg EC tablet, Take 1 tablet (81 mg) by mouth once daily as directed., Disp: 90 tablet, Rfl: 3 atorvastatin (Lipitor) 80 mg tablet, Take 1 tablet (80 mg) by mouth at bedtime., Disp: 90 tablet, Rfl: 3 carvedilol (Coreg) 6.25 mg tablet, Take 1 tablet (6.25 mg) by mouth with breakfast and with evening meal., Disp: 180 tablet, Rfl: 3 cetirizine (ZyrTEC) 10 mg tablet, Take 10 mg by mouth in the morning., Disp: , Rfl: nitroglycerin (Nitrostat) 0.4 mg SL tablet, Place 1 tablet (0.4 mg) under the tongue every 5 (five) minutes if needed for chest pain., Disp: 25 tablet, Rfl: 3 sacubitril-valsartan (Entresto) 49-51 mg tablet, Take 1 tablet by mouth two times daily., Disp: 180 tablet, Rfl: 3 spironolactone (Aldactone) 50 mg tablet, Take 1 tablet (50 mg) by mouth in the morning., Disp: 90 tablet, Rfl: 3 torsemide (Demadex) 20 mg tablet, Take 1 tablet (20 mg) by mouth if needed (Weight gain, LE swelling)., Disp: 90 tablet, Rfl: 3 cholecalciferol, vitamin D3, 50 mcg (2,000 unit) capsule, TAKE 1 CAPSULE BY MOUTH EVERY DAY FOR 30 DAYS for 30, Disp: , Rfl: Physical Exam Vitals reviewed. Constitutional: Appearance: Normal appearance. She is obese. HENT: Head: Normocephalic and atraumatic. Right Ear: External ear normal. Left Ear: External ear normal. Eyes: Extraocular Movements: Extraocular movements intact. Conjunctiva/sclera: Conjunctivae normal. Pupils: Pupils are equal, round, and reactive to light. Neck: Vascular: No carotid bruit. Cardiovascular: Rate and Rhythm: Normal rate and regular rhythm. Pulses: Normal pulses. Heart sounds: Normal heart sounds. Pulmonary: Effort: Pulmonary effort is normal. Breath sounds: Normal breath sounds. Abdominal: General: Bowel sounds are normal. Palpations: Abdomen is soft. Musculoskeletal: Cervical back: Neck supple. Right lower leg: Edema present. Left lower leg: Edema present. Comments: +1 BLE edema Skin: General: Skin is warm and dry. Neurological: General: No focal deficit present. Mental Status: She is alert and oriented to person, place, and time. Psychiatric: Mood and Affect: Mood normal. Behavior: Behavior normal. Thought Content: Thought content normal. Judgment: Judgment normal. Labs: No results found for: EXTCMP , BMPR1A , C (more content not included)... [facility] 06-01-2024 Note b [facility] 06-01-2024 Note SD Cardiology - [facility] Subjective Jovan Horton is [...] Essential hypernatremia History of section History of ND (myocardial infarction) Hypertensive urgency Ischemic cardiomyopathy Multigravida [...] (CMS/HCC) Coronary artery disease s/p PCI to 1st diag Hyperlipidemia Hypertension Past Surgical History: Procedure [...] BUN 7, c (more content not included)... [facility] Evaluation + Plan note No data available for this section [facility] Evaluation note Diagnosis Chronic systolic congestive heart failure, NYHA class 3 Mixed hyperlipidemia Medication course changed Essential hypertension Unspecified essential hypertension Abnormal EKG Nonspecific abnormal electrocardiogram (ECG) (EKG) Coronary artery disease involving rincon coronary artery of rincon heart without angina pectoris S/P drug eluting coronary stent placement History of myocardial infarction Ischemic cardiomyopathy Other specified forms of chronic ischemic heart disease BMI 40.0-44.9, adult (Multi) Current smoker documented in this encounter [facility] Work Phone: Evaluation note* Diagnosis Coronary artery disease involving rincon coronary artery of rincon heart without angina pectoris CHF (congestive heart failure), NYHA class II, acute on chronic, systolic BMI 38.0-38.9,adult Medication course changed Ischemic cardiomyopathy Other specified forms of chronic ischemic heart disease History of myocardial infarction Mixed hyperlipidemia Essential hypertension Unspecified essential hypertension Current smoker Abnormal EKG Nonspecific abnormal electrocardiogram (ECG) (EKG) Chronic systolic congestive heart failure, NYHA class 3 documented in this encounter [facility] Work Phone: Evaluation note* Diagnosis Ischemic cardiomyopathy Other specified forms of chronic ischemic heart disease CHF (congestive heart failure), NYHA class II, acute on chronic, systolic documented in this encounter [facility] Work Phone: Evaluation noteNo assessment information available [facility] Work Phone: Hospital Discharge instructions No data available for this section [facility] No data available for this section [facility]ative)No reason for referral information availableTri[facility] Work Phone: Reason for visit Narrative* CV Imaging (Routine) - Authorized Specialty Diagnoses / Procedures Referred By Contac t Referred To Contact Cardiology Diagnoses Ischemic cardiomyopathy CHF (congestive heart failure), NYHA class II, acute on chronic, systolic Procedures Transthoracic Echo Limited [place] ECHO TRANSTHORC R-T 2D W/WO M-MODE REC F-UP/LMTD OH DOPPLER ECHO COLOR FLOW VELOCITY MAPPING [place] DOPPLER ECHO PULSE WAVE W/SPECTRAL F-UP/LMTD STD Nella Madden MD [address] [facility] [address] [place] [address] Phone: tel: fax: Referral ID Status Reason Start Date Expiration Date Visits Requested Visits Authorized [id number] Authorized Perform Procedure 11/02/2024 11/02/2025 1 1 [facility] Work Phone: Summary Purpose Family History No Family History Records FoundNo Family History Records Found No data available for this section No Family History Records FoundNo Family History Records FoundNo Family History Records FoundNo Family History Records FoundNo Family History Records Found Advance Directives Advance Directive Response Recorded Date/ Time Advance Directives No October 29 2:54pm Chief Complaint and Reason for Visit Chief Complaint Admit Date I25.5 I50.23 January 29, 2025 2:55pm Additional Source Comments INFORMATION SOURCE (unrecogn ized section and content) DATE CREATED AUTHOR 03/11/2022 [facility] DATE CREATED AUTHOR AUTHOR'S ORGANIZ ATION 07/21/2023 [facility] EPIC DATE CREATED AUTHOR AUTHOR'S ORGANIZ ATION 08/02/2023 [facility] DATE CREATED AUTHOR AUTHOR'S ORGANIZ ATION 09/04/2024 [facility] DATE CREATED AUTHOR AUTHOR'S ORGANIZ ATION 11/04/2024 [facility] DATE CREATED AUTHOR AUTHOR'S ORGANIZ ATION 11/21/2024 [facility] DATE CREATED AUTHOR AUTHOR'S ORGANIZ ATION 12/07/2024 [facility] Patient Care team informatio n (unrecognized section and content) Circulation Librarian Relationship Specialty Start Date End Date Svitlana Yanes APRN-CNP [address] [place] [address] PCP - General 09/11/24 Circulation Librarian Relationship Specialty Start Date End Date Svitlana Yanes APRN-CNP [address] [place] [address] PCP - General 09/11/24 Circulation Librarian Relationship Specialty Start Date End Date Svitlana Yanes APRN-CNP [address] [place] [address] PCP - General 09/11/24 Team Status: Active Member Role Status Dates EDUAR Little Primary Care Provider Active Team Status: Inactive Member Role Status Dates JENNIFER LittleC Primary Care Provider Active Start: January 29, 2025 End: January 29, 2025 Nella Madden MD Attending Provider Active Star t: January 29, 2025 End: January 29, 2025 Reason for Visit (unrecogniz ed section and content) Reason Comments New Patient Visit Ischemic cardiomyopa thy Specialty Diagnoses / Procedures Referred By Contac t Referred To Contact Diagnoses Chronic systolic congestive heart failure, NYHA class 3 Procedures ECG 12 Lead Nella Madden MD [address] [address] Phone: tel: fax: Referral ID Status Reason Start Date Expiration Date V isits Requested Visits Authorized [id number] Authorized 09/11/2024 09/11/2025 1 1 Reason Comments Follow-up 6 week follow up for Chronic systolic congestive heart failure, NYHA class 3 Specialty Diagnoses / Procedures Referred By Contac t Referred To Contact Cardiology Diagnoses Coronary artery disease involving rincon coronary artery of rincon heart without angina pectoris Procedures Follow Up In Cardiology Nella Madden MD [address] [address] Phone: tel: fax: Nella Madden MD [address] [address] Phone: tel: fax: Referral ID Status Reason Start Date Expiration Date V isits Requested Visits Authorized [id number] Authorized 09/11/2024 09/11/2025 1 1 Goals (unrecognized section and content) Goals may be documented in a n alternate section FOR RECORDS PERTAINING TO PATIENTS WHO ARE [...] BE BASED ON THE PRIMARY CLINICAL RECORDS. [employer] provides no warranty or guarantee of the accuracy or completeness of information in this document.
[2025-01-31 19:36] VITALS: BP 141/101; PULSE 70; TEMP 36.9; O2SAT 100; BMI 39.9
[2025-01-31 20:01] VITALS: BP 130/90; PULSE 68; O2SAT 100
--- NOTE | 2025-01-31 20:15 | ED_ITS ---
HPI - Nausea/Vomiting/Diarrhea General Chief complaint: Nausea/Vomiting/Diarrhea Stated complaint: Nausea/Vomiting/Diarrhea Time Seen by Provider: 01/31/25 19:46 Source: patient and family Mode of arrival: walk-in Limitations: no limitations History of Present Illness HPI Narrative: 39-year-old female presents with nausea and vomiting starting today. She reports upper abdominal cramping and is attempting to maintain oral hydration. Symptoms began after experiencing dental pain last night, which is chronic and intermittent. She took a medication for the pain, after which she began vomiting. She denies diarrhea, fever, chest pain, shortness of breath, lightheadedness, or dizziness. She is unsure about potential . No vaginal discharge or bleeding. Family reports elevated blood pressure at home. Patient states she feels very fatigued. No other complaints. Related Data Home Medications ?Medication ?Instructions ?Recorded ?Confirmed aspirin 81 mg tablet,delayed 81 mg PO QDAY 02/21/24 release atorvastatin 80 mg tablet 80 mg PO .qhs 02/21/2401/31 amoxicillin 875 mg-potassium 1 tab PO Q12H 01/31/25 clavulanate 125 mg tablet carvedilol 12.5 mg tablet 12.5 mg PO Q12H 01/31/25 empagliflozin 10 mg tablet 10 mg PO DAILY 01/31/25 (Jardiance) sacubitril 97 mg-valsartan 103 mg 1 tab PO BID 5 01/31/25 tablet (Entresto) spironolactone 50 mg tablet 50 mg PO QDAY 01/31/25 Previous Rx's ?Medication ?Instructions ?Recorded amoxicillin 875 mg tablet 875 mg PO Q12H #20 tabs 01/18 09/11 ondansetron 4 mg disintegrating 4 mg PO Q4H PRN nausea and 01/31/25 tablet vomiting #14 tabs Allergies Allergy/AdvReac Type Severity Reaction Status Date / Time No Known Drug Allergies Allergy Verified 01/31/25 19:29 [facility] Medical History (Updated 01/31/25 @ 21:50 by BHUMI TERRAZAS) HTN (hypertension) ?I10 - Essential (primary) hypertension (ICD-10) Heart attack ?I21.9 - Acute myocardial infarction, unspecified (ICD-10) Surgical History (Updated 02/21/24 @ 18:12 by Amie Giordano) Stented coronary artery ?Z95.5 - Presence of coronary angioplasty implant and graft (ICD-10) Social History Smoking status: Current every day smoker Little interest or pleasure in doing things: not at all Feeling down, depressed, or hopeless: not at all Exam Narrative Exam Narrative: * General: Resting in bed, tearful, appears uncomfortable but in no acute distress * HEENT: * Poor dentition with right upper gumline swelling and involvement of incisors, no obvious abscess * Tongue mobile, no sublingual swelling * Pharynx: Not erythematous, no exudate * Pupils equal, round, reactive to light * No nuchal rigidity * No cervical lymphadenopathy * Cardiac: Regular rate and rhythm, no murmurs * Respiratory: Lungs clear to auscultation bilaterally * Abdomen: Soft, mild tenderness in right upper quadrant and epigastrium, no rebound, no guarding * Skin / Extremities: Warm, dry, good capillary refill, pulses normal * Neuro: Alert and oriented, normal mentation Constitutional Vital Signs, click to edit/add: Last Vital Signs Temp 98.5 F 01/31/25 19:36 Pulse 67 01/31/25 22:31 Resp 16 01/31/25 22:31 BP 115/85 01/31/25 22:31 Pulse Ox 100 01/31/25 22:31 O2 Del Method Room Air 01/31/25 22:31 Course Vital Signs Vital signs: Vital Signs Temperature 98.5 F 01/31/25 19:36 Pulse Rate 70 01/31/25 19:36 Respiratory Rate 16 01/31/25 19:36 Blood Pressure 141/101 H 01/31/25 19:36 Pulse Oximetry 100 01/31/25 19:36 Oxygen Delivery Method Room Air 01/31/25 19:36 Temperature 98.5 F 01/31/25 19:36 Pulse Rate 67 01/31/25 22:31 Respiratory Rate 16 01/31/25 22:31 Blood Pressure 115/85 01/31/25 22:31 Pulse Oximetry 100 01/31/25 22:31 Oxygen Delivery Method Room Air 01/31/25 22:31 MDM - Nausea/Vomiting/Diarrhea MDM Narrative Medical decision making narrative: 39-year-old female presents with vomiting and mild epigastric/right upper quadrant tenderness after taking antibiotics for dental pain. UA notable for glucosuria and ketonuria, HCG negative, basic labs unremarkable. Differential includes antibiotic-induced gastrointestinal upset, mild dehydration, hyperglycemia (new or undiagnosed diabetes), gastritis, or early viral gastroenteritis. Patient is hemodynamically stable, tolerating oral intake, and symptoms improved with Zofran. Plan includes discontinuing current antibiotic and starting Amoxicillin, continued oral hydration, monitoring for worsening dehydration or persistent vomiting, and follow-up with primary care or dentist. Recommend following up with PCP this week for urine recheck and possible diabetes work up glucose here was 118 Patient educated on return precautions including inability to tolerate fluids, persistent vomiting, worsening abdominal pain, or new neurologic or systemic symptoms. Medical Records Attestation: I reviewed the patient's medical records. Lab Data Attestation: I reviewed the patient's lab results. Labs: Lab Results 01/31/25 01/31/25 Range/Units 21:00 21:35 WBC 8.5 (4.0-11.0) 10^3/uL RBC 4.65 (4.20-5.40) 10^6/uL Hgb 14.4 (12.0-16.0) g/dL Hct 43.1 (36.0-48.0) % MCV 92.7 (81.0-99.0) fL MCH 31.0 (26.7-34.0) pg MCHC 33.4 (29.9-35.2) g/dL RDW 12.5 (11.0-15.0) % Plt Count 230 (150-450) 10^3/uL MPV 9.0 L (9.5-13.5) fL Neut % (Auto) 75.8 H (43.0-75.0) % Lymph % (Auto) 17.2 L (20.5-60.0) % Mower % (Auto) 5.6 (1.7-12.0) % Eos % (Auto) 0.8 L (0.9-7.0) % Baso % (Auto) 0.2 (0.2-2.0) % Neut # (Auto) 6.4 (1.4-6.5) 10^3/uL Lymph # (Auto) 1.5 (1.2-3.8) 10^3/uL Mower # (Auto) 0.5 (0.3-0.8) 10^3/uL Eos # (Auto) 0.1 (0.0-0.7) 10^3/uL Baso # (Auto) 0.0 (0.0-0.1) 10^3/uL Abs Immat Gran (auto) 0.03 (0.00-0.03) 10^3/uL Imm/Tot Granulo (auto) 0.4 (0.0-0.5) % Sodium 142 (136-145) mmol/L Potassium 4.2 (3.5-5.1) mmol/L Chloride 107 (98-107) mmol/L Carbon Dioxide 27.0 (21.0-32.0) mmol/L Anion Gap 12.2 BUN 7.0 (7.0-18.0) mg/dL Creatinine 0.78 (0.55-1.02) mg/dL Est GFR ( Amer) >60 (>=60 mL/min/1.73m^2) Est GFR (Non-Af Amer) >60 (>=60 mL/min/1.73m^2) BUN/Creatinine Ratio 9.0 Glucose 118 H (74-106) mg/dL Calcium 8.9 (8.5-10.1) mg/dL Total Bilirubin 0.6 (0.2-1.0) mg/dL AST 8 L (15-37) U/L ALT 18 (14-59) U/L Alkaline Phosphatase 104 (46-116) U/L Total Protein 6.8 (6.4-8.2) g/dL Albumin 3.6 (3.4-5.0) g/dL Globulin 3.2 g/dL Albumin/Globulin Ratio 1.1 Lipase 88.0 H (16.0-77.0) U/L Urine Color Lt. yellow (YELLOW) Urine Clarity Clear (CLEAR) Urine pH 6.0 (5.0-9.0) Ur Specific [place] <=1.005 A (1.005-1.025) Urine Protein Negative (NEG/TRACE) mg/dL Urine Glucose (UA) >=1000 A (NEGATIVE) mg/dL Urine Ketones 15 A (NEGATIVE) mg/dL Urine Occult Blood Negative (NEGATIVE) Urine Nitrite Negative (NEGATIVE) Urine Bilirubin Negative (NEGATIVE) Urine Urobilinogen 0.2 (0.2-1.0) EU/dL Ur Leukocyte Esterase Negative (NEGATIVE) Urine HCG, Qual Negative (NEGATIVE) Discharge Plan Discharge Chief Complaint: Nausea/Vomiting/Diarrhea Clinical Impression: Nausea & vomiting, Dehydration, Pain, dental Patient Disposition: Home, Self-Care Time of Disposition Decision: 21:50 Condition: Good Prescriptions / Home Meds: New amoxicillin 875 mg tablet 875 mg PO Q12H Qty: 20 0RF ondansetron 4 mg tablet,disintegrating 4 mg PO Q4H PRN (Reason: nausea and vomiting) Qty: 14 0RF Rx Instructions: 1st dose 1-2 hr before radiation No Action aspirin 81 mg tablet,delayed release (DR/EC) 81 mg PO QDAY atorvastatin 80 mg tablet 80 mg PO .qhs carvedilol 12.5 mg tablet 12.5 mg PO Q12H sacubitril-valsartan [Entresto] 97-103 mg tablet 1 tab PO BID spironolactone 50 mg tablet 50 mg PO QDAY Jardiance 10 mg tablet 10 mg PO DAILY amoxicillin-pot clavulanate 875-125 mg tablet 1 tab PO Q12H Rx Instructions: started today at 3am Print Language: Frisian Additional Instructions: After Visit Summary (AVS) Diagnosis: * Vomiting, likely related to recent antibiotic * Mild dehydration and glucosuria noted on labs Medications Prescribed / Changes: * Stop current antibiotic (causing GI upset) * Start Amoxicillin for dental infection, take exactly as prescribed * Zofran for nausea as directed Home Care Instructions: * Hydration: * Drink small sips of water, clear fluids, or electrolyte solutions regularly * Eat bland foods like crackers or toast as tolerated * Symptom Management: * Use Zofran as prescribed for nausea * Acetaminophen or ibuprofen may be used for mild pain or body aches * Monitoring: * Check for signs of dehydration: dry mouth, dizziness, low urine output * Monitor for hyperglycemia if known diabetes or persistent glucosuria Follow-Up: * Primary Care Provider (PCP): Recheck urinalysis and metabolic status this week * Continue oral hydration and Amoxicillin course Return to ED Immediately If: * Persistent vomiting or inability to tolerate fluids * Severe abdominal pain or new symptoms * Confusion, dizziness, or fainting * Worsening fatigue or new neurologic changes Referrals: RAFY YANES [Primary Care Provider, [facility]] - 1 week Discharge Date/Time: 01/31/25 22:34
[2025-01-31] MEDS: ONDANSETRON 4 MG RAPDIS TABLET SL (20:57)
[2025-01-31 21:10] LABS: Hematocrit 43.1 % (36.0-48.0); Hemoglobin 14.4 g/dL (12.0-16.0); Immature Granulocytes Abs Auto 0.03 10^3/uL (0.00-0.03); Immature Granulocytes Pct Auto 0.4 % (0.0-0.5); Lymphocytes Absolute Auto 1.5 10^3/uL (1.2-3.8); Mean Corpuscular HGB Conc 33.4 g/dL (29.9-35.2); Mean Corpuscular Hemoglobin 31.0 pg (26.7-34.0); Mean Corpuscular Volume 92.7 fL (81.0-99.0); Platelet Count 230 10^3/uL (150-450); Red Blood Count 4.65 10^6/uL (4.20-5.40); White Blood Count 8.5 10^3/uL (4.0-11.0)
[2025-01-31 21:27] LABS: Alanine Aminotransferase 18 U/L (14-59); Albumin Globulin Ratio 1.1; Albumin Level 3.6 g/dL (3.4-5.0); Alkaline Phosphatase 104 U/L (46-116); Anion Gap 12.2; Aspartate Amino Transferase 8 U/L (15-37); Blood Urea Nitrogen 7.0 mg/dL (7.0-18.0); Calcium 8.9 mg/dL (8.5-10.1); Carbon Dioxide 27.0 mmol/L (21.0-32.0); Chloride 107 mmol/L (98-107); Estimated GFR (African America >60 (>=60 mL/min/1.73m^2); Estimated GFR (Non-African Ame >60 (>=60 mL/min/1.73m^2); Globulin 3.2 g/dL; Glucose 118 mg/dL (74-106); Lipase 88.0 U/L (16.0-77.0); Potassium 4.2 mmol/L (3.5-5.1); Sodium 142 mmol/L (136-145); Total Protein 6.8 g/dL (6.4-8.2)
[2025-01-31 21:40] LABS: Glucose Urine UA >=1000 mg/dL (NEGATIVE)
[2025-01-31 21:42] LABS: HCG Qualitative Urine* NEGATIVE (NEGATIVE)
[2025-01-31 22:31] VITALS: BP 115/85; PULSE 67; O2SAT 100
== END 2025-01-31 22:34 | disposition home or self-care (01) ==
PROVIDERS: Physician Assistant; Emergency Provider Internal Medicine; PCP Nurse Practitioner Family
DX: E86.0 Dehydration (principal); R11.2 Nausea with vomiting, unspecified; K08.89 Other specified disorders of teeth and supporting structures
CPT/HCPCS: 36415; 80053; 81003; 83690; 84703; 85025; 99284; Q0162